=== PATIENT | female | born 1985 | race Caucasian/White ===

== ENCOUNTER 2019-01-20 16:30 | Emergency (ER) | payer MEDICAID ==
[2019-01-20] MEDS ORDERED: Diazepam 5 MG Tab PO ONE (17:40)
--- NOTE | 2019-01-20 17:47 | EDM.PDOC ---
ED HPI GENERAL MEDICAL PROBLEM - General Chief Complaint: Back Pain or Injury Stated Complaint: BACK PAIN Time Seen by Provider: 01/20/19 17:25 Source of Information: Reports: Patient History Limitations: Reports: No Limitations - History of Present Illness INITIAL COMMENTS - FREE TEXT/NARRATIVE: 33-year-old female with long-standing history of chronic back pain. She reports a previous lumbar spine fracture as a teenager (she reports she is unsure how this occurred but was told that she had a fracture in her back during workup for the pain that she is now experiencing). She reports she always has pain in her back. She reports she has been followed by a doctor at [facility] in [place]. She has been given tramadol for her pain as well as Flexeril and she reports that this does not help her pain. She reports the pain does seems to be worse today. She reports the pain as a 10/10 at this point. It is in her lower back and seems to be radiating to her hips which is not unusual. She reports the pain is just worse than it normally is. No new trauma. No abdominal pain. No bowel or bladder control problems. No leg weakness. No abdominal pain. She has been eating and drinking normally. There are R no other associated signs or symptoms. There are no other modifying factors. 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, Other (see below) (Tramadol) back Pain Score (Numeric/FACES): 10 - Related Data Allergies Allergy/AdvReac Type Severity Reaction Status Date / Time amitriptyline Allergy Tachycardia Verified 01/20/19 16:45 Home Meds: Home Meds Cyclobenzaprine HCl 10 mg PO TID 01/20/19 [History] Gabapentin [Neurontin] 300 mg PO DAILY 01/20/19 [History] traMADol [Ultram] 50 mg PO TID PRN 01/20/19 [History] Past Medical History Respiratory History: Reports: Asthma Gastrointestinal History: Reports: Diverticulosis (With diverticulitis status post colon resection) Musculoskeletal History: Reports: Back Pain, Chronic, Other (See Below) ( Reports previous lumbar spine fracture (found on x-ray during workup for her back pain)) - Past Surgical History GI Surgical History: Reports: Cholecystectomy, Colon (: Resection for diverticulitis) Female Surgical History: Reports: Section Social & Family History - Tobacco Use Smoking Status *Q: Never Smoker - Alcohol Use Alcohol Use History: Yes Alcohol Use Frequency: Rarely - Living Situation & Occupation Occupation: Unemployed ED ROS GENERAL - Review of Systems Review Of Systems: See Below Constitutional: Reports: No Symptoms HEENT: Reports: No Symptoms Respiratory: Reports: No Symptoms Cardiovascular: Reports: No Symptoms GI/Abdominal: Reports: No Symptoms : Reports: No Symptoms Musculoskeletal: Reports: Back Pain Skin: Reports: No Symptoms Neurological: Reports: No Symptoms Hematologic/Lymphatic: Reports: No Symptoms Immunologic: Reports: No Symptoms ED EXAM,LOWER BACK PAIN/INJURY - Physical Exam Exam: See Below Exam Limited By: No Limitations General Appearance: Alert, WD/WN, Moderate Distress, Other (It should be noted, however, that she moves quite well going from the chair to the stretcher and seems to be bending and twisting her back without problem.) Eye Exam: Bilateral Eye: EOMI, Normal Inspection, PERRL Ears: Normal External Exam, Hearing Grossly Normal Nose: Normal Inspection, Normal Mucosa Throat/Mouth: Normal Inspection, Normal Oropharynx, Normal Voice, No Airway Compromise Head: Atraumatic, Normocephalic Neck: Normal Inspection, Supple, Non-Tender, Full Range of Motion Respiratory/Chest: No Respiratory Distress, Lungs Clear, Normal Breath Sounds, No Accessory Muscle Use, Chest Non-Tender Cardiovascular: Normal Peripheral Pulses, Regular Rate, Rhythm, No JVD GI/Abdominal: Normal Bowel Sounds, Soft, Non-Tender, Other (Protuberant) Back Exam: Muscle Spasm, Vertebral Tenderness (But no crepitus. No deformity. Redness. No rashes.) Extremities: Normal Inspection, Normal Range of Motion, Non-Tender, No Pedal Edema, Normal Capillary Refill Neurological: Alert, Normal Mood/Affect, Normal Dorsiflexion, CN II-XII Intact, Normal Plantar Flexion, No Motor/Sensory Deficits, Oriented x 3, Other ( Negative straight leg raising bilaterally) Psychiatric: Tearful Skin Exam: Warm, Dry, Intact, Normal Color, No Rash Course - Orders/Labs/Meds Meds: Medications Discontinued Medications Generic Name Dose Route Start Last Admin Trade Name Deanna PRN Reason Stop Dose Admin Diazepam 10 mg 01/20/19 17:40 Valium. PO 01/20/19 17:41 ONETIME ONE - Re-Assessments/Exams Free Text/Narrative Re-Assessment/Exam: 01/20/19 17:45: It was explained to the patient that narcotic or stronger type pain medications are not used for treatment of chronic pain through the emergency department. I have explained to her that she would need to go through her primary doctor for any pain control measures. I offered the patient and injection of Toradol and Valium. She did except the oral Valium dose. Departure - Departure Time of Disposition: 17:53 Disposition: Home, Self-Care 01 Condition: Good Clinical Impression: Chronic back pain greater than 3 months duration - Discharge Information Instructions: Chronic Back Pain, [id number], Chronic Pain, Adult Referrals: PCP,Not In Area [Primary Care Provider] - Additional Instructions: You need to follow-up with your primary doctor for any pain related issues are chronic back pain. Back to the emergency department for bowel or bladder control problems, leg weakness, abdominal pain, fever or any other concerning sign or symptom.
== END 2019-01-20 18:00 | disposition home or self-care (01) ==
LOC: FB.ED 16:30
DX: M62.830 Muscle spasm of back (principal); G89.29 Other chronic pain; Z79.899 Other long term (current) drug therapy; Z88.8 Allergy status to other drugs, medicaments and biological substances
CPT/HCPCS: 99283; A9270

== ENCOUNTER 2019-07-15 21:33 | Emergency (ER) | payer MEDICAID ==
[2019-07-15] MEDS ORDERED: Acetaminophen 500 MG Tab PO ONE (22:03)
[2019-07-15] MEDS ORDERED: Metoclopramide Oral Soln 10 MG/10 ML UD Cup PO ONE (22:03)
[2019-07-15] MEDS ORDERED: diphenhydrAMINE 50 MG Cap PO ONE (22:04)
--- NOTE | 2019-07-15 22:10 | EDM.PDOC ---
ED HPI GENERAL MEDICAL PROBLEM - General Chief Complaint: Neck Problem Stated Complaint: BACK Time Seen by Provider: 07/15/19 22:02 Source of Information: Reports: Patient History Limitations: Reports: No Limitations - History of Present Illness INITIAL COMMENTS - FREE TEXT/NARRATIVE: c/o neck pain x 24h pt without h/o neck pain, has had pain x 24h, no injury, took an oxycodone 5 mg last night which helped a little, on meds today cannot take NSAIDs for another 3w, had a lower back fusion at [facility] with Dr Burton on 04-27-19 for DJD, also "sucked something out" and "put in a replacement" has f/u apt in [place] in 2w with plans for imaging low back then to "see if anything slipped" which "might require more surgery" has imaging in [place] in the last few weeks not allowed to take NSAIDs for 3m post-op only current meds are oxycodone and Flexeril prn had been on citalopram 20 mg/d for anxiety, however it made her sleepy had been on gabapentin but this caused GI upset, 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, lives alone with dog, sees a female [place] physician feels like "something is creaking" in her neck with movement, does move freely, pain more at upper neck neck Pain Score (Numeric/FACES): 8 - Related Data Allergies Allergy/AdvReac Type Severity Reaction Status Date / Time amitriptyline Allergy Tachycardia Verified 07/15/19 21:43 Home Meds: Home Meds Albuterol Sulfate [Albuterol Sulfate Hfa] 1 - 2 puff INH Q4HR PRN 07/15/19 [ History] Past Medical History Respiratory History: Reports: Asthma Gastrointestinal History: Reports: Diverticulosis Musculoskeletal History: Reports: Back Pain, Chronic, Other (See Below) Other Musculoskeletal History: back fusion 04/2019, degenerative disc disease - Past Surgical History GI Surgical History: Reports: Cholecystectomy, Colon Female Surgical History: Reports: Section Social & Family History - Caffeine Use Caffeine Use: Reports: None - Living Situation & Occupation Occupation: Unemployed ED ROS GENERAL - Review of Systems Review Of Systems: See Below Constitutional: Reports: No Symptoms HEENT: Reports: No Symptoms Respiratory: Reports: No Symptoms Cardiovascular: Reports: No Symptoms Endocrine: Reports: No Symptoms GI/Abdominal: Reports: No Symptoms : Reports: No Symptoms Musculoskeletal: Reports: Neck Pain Skin: Reports: No Symptoms Neurological: Reports: No Symptoms Psychiatric: Reports: No Symptoms Hematologic/Lymphatic: Reports: No Symptoms Immunologic: Reports: No Symptoms ED EXAM, GENERAL - Physical Exam Exam: See Below Exam Limited By: No Limitations General Appearance: Alert, WD/WN, No Apparent Distress, Other (short, somewhat stocky built with short neck, slight anterior displacement of head, inc'd central girth) Nose: Normal Inspection Throat/Mouth: Normal Inspection Head: Atraumatic, Normocephalic Neck: Normal Inspection, Supple, Full Range of Motion, Other (no spasm, no definite point tender, good ROM, some discomfort at upper c-spine with ROM, low back with ~15 cm midline scar that is healing well) Respiratory/Chest: Lungs Clear Cardiovascular: Regular Rate, Rhythm Back Exam: Normal Inspection, Full Range of Motion Extremities: Normal Inspection, Normal Range of Motion, Non-Tender, No Pedal Edema Neurological: Alert, Oriented, CN II-XII Intact, Normal Cognition, Normal Gait, No Motor/Sensory Deficits Psychiatric: Normal Affect, Normal Mood Skin Exam: Warm, Dry, Intact, Normal Color, No Rash Lymphatic: No Adenopathy Course - Vital Signs Last Recorded V/S: Last Vital Signs Temp 36.2 C 07/15/19 21:35 Pulse 128 H 07/15/19 21:35 Resp 22 H 07/15/19 21:35 BP 140/97 H 07/15/19 21:35 Pulse Ox 100 07/15/19 21:35 - Orders/Labs/Meds Orders: Active Orders 24 hr Category Date Time Status Cervical Spine Comp w Obliques [CR] Stat Exams 07/15/19 21:57 Ordered Labs: Laboratory Tests 07/15/19 Range/Units 22:01 Urine HCG, Qual Negative (NEGATIVE) Meds: Medications Discontinued Medications Generic Name Dose Route Start Last Admin Trade Name Deanna PRN Reason Stop Dose Admin Acetaminophen 1,000 mg 07/15/19 22:03 07/15/19 22:23 Tylenol Extra Strength PO 07/15/19 22:04 1,000 mg ONETIME ONE Administration Diphenhydramine HCl 50 mg 07/15/19 22:04 07/15/19 22:23 Benadryl PO 07/15/19 22:05 50 mg ONETIME ONE Administration Metoclopramide HCl 10 mg 07/15/19 22:03 07/15/19 22:23 Reglan PO 07/15/19 22:04 10 mg ONETIME ONE Administration - Radiology Interpretation Free Text/Narrative:: c-spine prelim reading: minimal DJD at C6-C7 Departure - Departure Time of Disposition: 22:48 Disposition: Home, Self-Care 01 Condition: Good Clinical Impression: Neck sprain - Discharge Information *PRESCRIPTION DRUG MONITORING PROGRAM REVIEWED*: Yes *COPY OF PRESCRIPTION DRUG MONITORING REPORT IN PATIENT TRICIA: Not Applicable Instructions: Cervical Collar, Cervical Sprain Forms: ED Department Discharge Additional Instructions: For inflammation, take acetaminophen 500 mg 2 tabs 4 times a day for 5 days, longer if needed. At the end of the month, may also take ibuprofen 200 mg 3 tabs 4 times a day. Use heat for 10 minutes every 2 hours as needed. Maintain head in a neutral position, particularly when sleeping. Use a soft cervical collar for 3 days to rest the soft tissues and allow them to heal. Discuss further with your orthopedic surgeon in 2 weeks. - My Orders Last 24 Hours: My Active Orders 07/15/19 21:57 Cervical Spine Comp w Obliques [CR] Stat - Assessment/Plan Last 24 Hours: My Active Orders 07/15/19 21:57 Cervical Spine Comp w Obliques [CR] Stat
[2019-07-16] MEDS ORDERED: Sodium Chloride 0.9% 10 ML Syringe FLUSH PRN (00:20)
[2019-07-16] MEDS ORDERED: Iopamidol 755 Mg/ML 100 ML Bottle IV ONE (00:39)
[2019-07-16 01:00] LABS: HEMOGLOBIN A1C 5.4 % (4.5-6.2)
== END 2019-07-16 02:55 ==
LOC: FB.ED 21:33
DX: S13.9XXA Sprain of joints and ligaments of unspecified parts of neck, initial encounter (principal); G89.18 Other acute postprocedural pain; M54.5 Low back pain; R00.0 Tachycardia, unspecified; I10 Essential (primary) hypertension; D72.829 Elevated white blood cell count, unspecified; R79.82 Elevated C-reactive protein (CRP); R74.8 Abnormal levels of other serum enzymes; R73.9 Hyperglycemia, unspecified; J45.909 Unspecified asthma, uncomplicated; Z88.8 Allergy status to other drugs, medicaments and biological substances; X58.XXXA Exposure to other specified factors, initial encounter
CPT/HCPCS: 36415; 71046; 72050; 72131; 80053; 81001; 81025; 83036; 83605; 84443; 85025; 86140; 87040; 87077; 87186; 99285; A9270; Q9967

== ENCOUNTER 2019-08-22 22:49 | Emergency (ER) | payer MEDICAID ==
--- NOTE | 2019-08-22 23:43 | EDM.PDOC ---
ED HPI GENERAL MEDICAL PROBLEM - General Chief Complaint: Genitourinary Problem Stated Complaint: VAGINAL PAIN Time Seen by Provider: 08/22/19 23:05 Source of Information: Reports: Patient History Limitations: Reports: No Limitations - History of Present Illness INITIAL COMMENTS - FREE TEXT/NARRATIVE: Patient presented to the ED because of vaginal pain especially during intercourse. Denies having any fever or chills. 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 Vagina & lower back Pain Score (Numeric/FACES): 10 - Related Data Allergies Allergy/AdvReac Type Severity Reaction Status Date / Time amitriptyline Allergy Tachycardia Verified 08/22/19 22:56 Home Meds: Home Meds Albuterol Sulfate [Albuterol Sulfate Hfa] 1 - 2 puff INH Q4HR PRN 07/15/19 [ History] Escitalopram [Lexapro] 10 mg PO BEDTIME 08/22/19 [History] Pregabalin [Lyrica] 75 mg BID 08/22/19 [History] Acetaminophen/oxyCODONE [Percocet 325-5 MG] 1 - 2 each PO Q6HR PRN #15 tab 08/23 [Rx] Sulfamethoxazole/Trimethoprim [Bactrim Ds Tablet] 1 each PO BID #6 tablet [Rx] Tamsulosin HCl [Flomax] 0.4 mg PO DAILY #10 cap.er.24h 08/23/19 [Rx] Past Medical History Cardiovascular History: Reports: Hypertension Respiratory History: Reports: Asthma Gastrointestinal History: Reports: Diverticulosis Genitourinary History: Reports: Renal Calculus, Renal Disease CARPET JACK History: Reports: Other CARPET JACK History: Musculoskeletal History: Reports: Back Pain, Chronic, Other (See Below) Other Musculoskeletal History: back fusion 04/2019, degenerative disc disease Psychiatric History: Reports: Anxiety, Depression, Suicide Attempt Endocrine/Metabolic History: Reports: Obesity/BMI 30+ Hematologic History: Reports: Anemia - Infectious Disease History Infectious Disease History: Reports: Chicken Pox - Past Surgical History GI Surgical History: Reports: Cholecystectomy, Colon, Colonoscopy, EGD Female Surgical History: Reports: Section, Lithotripsy/ESWL, Ureteral Stent Other Female Surgeries/Procedures: CS x 1 Neurological Surgical History: Reports: Spinal Fusion Musculoskeletal Surgical History: Reports: Arthroscopic Knee Other Musculoskeletal Surgeries/Procedures:: L knee scope Social & Family History - Family History Family Medical History: Noncontributory - Tobacco Use Smoking Status *Q: Current Some Day Smoker Years of Tobacco use: 1 Packs/Tins Daily: 0.1 - Caffeine Use Caffeine Use: Reports: Coffee, Energy Drinks, Soda, Tea - Recreational Drug Use Recreational Drug Use: No - Living Situation & Occupation Occupation: Unemployed ED ROS GENERAL - Review of Systems Review Of Systems: See Below Constitutional: Reports: No Symptoms HEENT: Reports: No Symptoms Respiratory: Reports: No Symptoms Cardiovascular: Reports: No Symptoms Endocrine: Reports: No Symptoms GI/Abdominal: Reports: Abdominal Pain, Nausea. Denies: Vomiting : Reports: Dysuria, Flank Pain Musculoskeletal: Reports: No Symptoms Skin: Reports: No Symptoms Neurological: Reports: No Symptoms ED EXAM, RENAL/ - Physical Exam Exam: See Below Exam Limited By: No Limitations General Appearance: Alert, WD/WN, No Apparent Distress Ears: Normal External Exam, Normal Canal, Hearing Grossly Normal Nose: Normal Inspection, Normal Mucosa, No Blood Throat/Mouth: Normal Inspection, Normal Lips, Normal Teeth, Normal Gums, Normal Oropharynx, Normal Voice, No Airway Compromise Head: Atraumatic, Normocephalic Neck: Normal Inspection, Supple, Non-Tender, Full Range of Motion Respiratory/Chest: No Respiratory Distress, Lungs Clear, Normal Breath Sounds, No Accessory Muscle Use, Chest Non-Tender Cardiovascular: Normal Peripheral Pulses, Regular Rate, Rhythm, No Edema, No Gallop, No JVD, No Murmur, No Rub GI/Abdominal: Normal Bowel Sounds, Soft, Non-Tender, No Organomegaly, No Distention, No Abnormal Bruit, No Mass, Pelvis Stable, Other (RCVAT) Course - Vital Signs Text/Narrative:: labs and Ct result were discussed with patient and verbalized understanding toradol 60 mg IM x1 [place] 5/325 mg,[address] abd/pelvis-see result Last Recorded V/S: Last Vital Signs Temp 36.5 C 08/22/19 22:50 Pulse 82 08/23/19 00:42 Resp 18 08/23/19 00:42 BP 151/93 H 08/23/19 00:42 Pulse Ox 99 08/23/19 00:42 - Orders/Labs/Meds Orders: Active Orders 24 hr Category Date Time Status Abdomen Pelvis wo Cont [CT] Stat Exams 12/22/19 23:50 Ordered CULTURE URINE [RM] Stat Lab 08/22/19 23:10 Received Labs: Laboratory Tests 08/22/19 Range/Units 23:10 Urine Color [place] (YELLOW) Urine Appearance Slightly cloudy (CLEAR) Urine pH 6.0 (5.0-6.5) Ur Specific [place] 1.020 (1.010-1.025) Urine Protein 500 H (NEGATIVE) mg/dL Urine Glucose (UA) 100 H (NORMAL) mg/dL Urine Ketones Negative (NEGATIVE) mg/dL Urine Occult Blood Large H (NEGATIVE) Urine Nitrite Negative (NEGATIVE) Urine Bilirubin Negative (NEGATIVE) Urine Urobilinogen Normal (NEGATIVE) mg/dL Ur Leukocyte Esterase Small H (NEGATIVE) Urine RBC Packed H (0-5) Urine WBC 0-5 (0-5) Ur Squamous Epith Cells Few H (NS,R,O) Urine Bacteria Few H (NS) Meds: Medications Discontinued Medications Generic Name Dose Route Start Last Admin Trade Name Freq PRN Reason Stop Dose Admin Hydrocodone Bitart/Acetaminophen 2 tab 08/22/19 23:56 08/23/19 00:01 [place] 325-5 Mg PO 08/22/19 23:57 2 tab ONETIME ONE Administration Ketorolac Tromethamine 60 mg 08/23/19 00:50 08/23/19 00:59 Toradol IM 08/23/19 00:51 60 mg ONETIME ONE Administration Departure - Departure Time of Disposition: 01:20 Disposition: Home, Self-Care 01 Condition: Good Clinical Impression: Nephrolithiasis, UTI, Urinary tract infectious disease, Kidney stone - Discharge Information Prescriptions: Acetaminophen/oxyCODONE [Percocet 325-5 MG] 1 - 2 each PO Q6HR PRN #15 tab PRN Reason: Pain Sulfamethoxazole/Trimethoprim [Bactrim Ds Tablet] 1 each PO BID #6 tablet Tamsulosin HCl [Flomax] 0.4 mg PO DAILY #10 cap.er.24h Instructions: Acetaminophen; Hydrocodone tablets or capsules, Ketorolac injection, Kidney Stones, [id number], Urinary Tract Infection, Adult, Easy-to- Read Referrals: Addis Roblero, DA[employer] EQUIPMENT INSTALLER [Primary Care Provider] - Forms: ED Department Discharge Additional Instructions: please read discharge instructions on UTI and kidney stones increase oral fluids,drink at least 2 liters a day bactrim DS twice daily for 3 days flomax once daily until you pain is gone percocet 5/325, 1-2 every 4-6 hours as needed for pain follow up with the urologist who did your stent this week Sepsis Event Note - Evaluation Sepsis Screening Result: No Definite Risk - Focused Exam Vital Signs: Vital Signs Temp Pulse Resp BP Pulse Ox 08/23/19 00:42 82 18 151/93 H 99 08/22/19 22:50 36.5 C 108 H 20 164/94 H 99 Date Exam was Performed: 08/23/19 Time Exam was Performed: 01:38 - My Orders Last 24 Hours: My Active Orders 08/22/19 23:10 CULTURE URINE [RM] Stat 08/22/19 23:50 Abdomen Pelvis wo Cont [CT] Stat - Assessment/Plan Last 24 Hours: My Active Orders 08/22/19 23:10 CULTURE URINE [RM] Stat 08/22/19 23:50 Abdomen Pelvis wo Cont [CT] Stat
[2019-08-22] MEDS ORDERED: Acetaminophen/HYDROcodone 325-5 MG Tab PO ONE (23:56)
[2019-08-23] MEDS ORDERED: Ketorolac 60 MG/2 ML SDV IM ONE (00:50)
== END 2019-08-23 01:54 | disposition home or self-care (01) ==
LOC: FB.ED 22:49
DX: N20.0 Calculus of kidney (principal); N39.0 Urinary tract infection, site not specified; J45.909 Unspecified asthma, uncomplicated; I10 Essential (primary) hypertension; E66.9 Obesity, unspecified; F17.210 Nicotine dependence, cigarettes, uncomplicated; F32.9 Major depressive disorder, single episode, unspecified; Z79.899 Other long term (current) drug therapy; Z88.8 Allergy status to other drugs, medicaments and biological substances; Z68.38 Body mass index [BMI] 38.0-38.9, adult
CPT/HCPCS: 74176; 81001; 87086; 96372; 99284-25; A9270-GY; J1885

== ENCOUNTER 2019-09-28 23:30 | Emergency (ER) | payer MEDICAID ==
[2019-09-29] MEDS ORDERED: Sodium Chloride 0.9% 10 ML Syringe FLUSH PRN (00:35)
[2019-09-29] MEDS ORDERED: Ondansetron 4 MG/2 ML SDV IVPUSH ONE (00:36)
[2019-09-29] MEDS ORDERED: HYDROmorphone 2 MG/ML SDV IVPUSH ONE (00:36)
[2019-09-29] MEDS ORDERED: Sodium Chloride 0.9% 1,000 ML IV SCH (00:45)
--- NOTE | 2019-09-29 01:33 | EDM.PDOC ---
ED HPI GENERAL MEDICAL PROBLEM - General Chief Complaint: Back Pain or Injury Stated Complaint: Upper and lower back pain with tingling in both legs Time Seen by Provider: 09/29/19 00:20 Source of Information: Reports: Patient History Limitations: Reports: No Limitations - History of Present Illness INITIAL COMMENTS - FREE TEXT/NARRATIVE: 33-year-old female who reports ongoing problems with back pain in her lower back since April 2019 Even before this. She had lumbar spinal fusion in April 2019 and she has persisted with pain in her lumbar back. Over the past 2 days she has had worsening of this pain and she also has noticed pain And with some radiation up into her left shoulder. She reports she had never had pain like this before. She also reports some tingling and seems to go down both legs. She has noticed no weakness in her legs. She is rating his pain as an 8-9/10. She has had no fevers or chills. She has had some nausea but no vomiting. The pain in her back is a cramping, sharp and throbbing type pain. She has had no bowel or bladder incontinence problems. She has normal sensation in her perineum. She also has been eating and drinking normally. She has no abdominal pain. No dysuria or hematuria. No history of trauma There are no other associated signs or symptoms. There are no other modifying factors. 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: Reports: Acetaminophen - Related Data Allergies Allergy/AdvReac Type Severity Reaction Status Date / Time amitriptyline Allergy Tachycardia Verified 08/22/19 22:56 Home Meds: Home Meds Albuterol Sulfate [Albuterol Sulfate Hfa] 1 - 2 puff INH Q4HR PRN 07/15/19 [ History] Escitalopram [Lexapro] 10 mg PO BEDTIME 08/22/19 [History] Pregabalin [Lyrica] 75 mg BID 08/22/19 [History] Acetaminophen/oxyCODONE [Percocet 325-5 MG] 1 - 2 each PO Q6HR PRN #15 tab 08/23 [Rx] Sulfamethoxazole/Trimethoprim [Bactrim Ds Tablet] 1 each PO BID #6 tablet [Rx] Tamsulosin HCl [Flomax] 0.4 mg PO DAILY #10 cap.er.24h 08/23/19 [Rx] Orphenadrine [Norflex] 100 mg PO BID PRN #12 tab 09/29/19 [Rx] Past Medical History Cardiovascular History: Reports: Hypertension Respiratory History: Reports: Asthma Gastrointestinal History: Reports: Diverticulosis Genitourinary History: Reports: Renal Calculus, Renal Disease 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: Musculoskeletal History: Reports: Back Pain, Chronic, Other (See Below) Other Musculoskeletal History: back fusion 04/2019, degenerative disc disease Psychiatric History: Reports: Anxiety, Depression, Suicide Attempt Endocrine/Metabolic History: Reports: Obesity/BMI 30+ Hematologic History: Reports: Anemia - Infectious Disease History Infectious Disease History: Reports: Chicken Pox - Past Surgical History GI Surgical History: Reports: Cholecystectomy, Colon, Colonoscopy, EGD Female Surgical History: Reports: Section, Lithotripsy/ESWL, Ureteral Stent Other Female Surgeries/Procedures: CS x 1 Neurological Surgical History: Reports: Spinal Fusion Musculoskeletal Surgical History: Reports: Arthroscopic Knee Other Musculoskeletal Surgeries/Procedures:: L knee scope Social & Family History - Tobacco Use Smoking Status *Q: Never Smoker - Caffeine Use Caffeine Use: Reports: Coffee, Energy Drinks, Soda, Tea - Alcohol Use Alcohol Use History: No - Living Situation & Occupation Occupation: Unemployed ED ROS GENERAL - Review of Systems Review Of Systems: See Below Constitutional: Reports: No Symptoms HEENT: Reports: No Symptoms Respiratory: Reports: No Symptoms Cardiovascular: Reports: No Symptoms GI/Abdominal: Reports: Nausea. Denies: Diarrhea, Vomiting : Reports: No Symptoms Musculoskeletal: Reports: Back Pain Skin: Reports: No Symptoms Neurological: Reports: No Symptoms Hematologic/Lymphatic: Reports: No Symptoms Immunologic: Reports: No Symptoms ED EXAM, GENERAL - Physical Exam Exam: See Below Exam Limited By: No Limitations General Appearance: Alert, WD/WN, Moderate Distress (Due to pain. He does not appear toxic.) Eye Exam: Bilateral Eye: EOMI, Normal Inspection, PERRL Ears: Normal External Exam, Hearing Grossly Normal Ear Exam: Bilateral Ear: Auricle Normal Nose: Normal Inspection, Normal Mucosa, No Blood Throat/Mouth: Normal Inspection, Normal Lips, Normal Oropharynx, Normal Voice, No Airway Compromise Head: Atraumatic, Normocephalic Neck: Normal Inspection, Supple, Non-Tender, Full Range of Motion Respiratory/Chest: No Respiratory Distress, Lungs Clear, Normal Breath Sounds, No Accessory Muscle Use, Chest Non-Tender Cardiovascular: Normal Peripheral Pulses, Regular Rate, Rhythm, No Murmur Peripheral Pulses: 2+: Brachial (L), Brachial (R), Dorsalis Pedis (L), Dorsalis Pedis (R) GI/Abdominal: Normal Bowel Sounds, Soft, Non-Tender, No Mass Back Exam: Muscle Spasm, Paraspinal Tenderness, Vertebral Tenderness Extremities: Normal Inspection, Normal Range of Motion, Non-Tender, No Pedal Edema, Normal Capillary Refill Neurological: Alert, Oriented, CN II-XII Intact, Normal Cognition, No Motor/ Sensory Deficits Skin Exam: Warm, Dry, Intact, Normal Color, No Rash EKG INTERPRETATION EKG Date: 09/29/19 Time: 01:28 Rhythm: NSR Rate (Beats/Min): 86 Jewell: Normal P-Wave: Present QRS: Normal ST-T: Other (Nonspecific ST-T changes) QT: Normal Comparison: NA - No Prior EKG Course - Vital Signs Last Recorded V/S: Last Vital Signs Temp 36.9 C 09/29/19 03:48 Pulse 82 09/29/19 03:48 Resp 14 09/29/19 03:48 BP 121/67 09/29/19 03:48 Pulse Ox 97 09/29/19 03:48 - Orders/Labs/Meds Orders: Active Orders 24 hr Category Date Time Status EKG Documentation Completion [RC] ASDIRECTED Care 09/29/19 00:36 Active CULTURE URINE [RM] Stat Lab 09/29/19 01:31 Received Sodium Chloride 0.9% [Normal Saline] 1,000 ml Med 09/29/19 00:45 Active IV ASDIRECTED Sodium Chloride 0.9% [Saline Flush] Med 09/29/19 00:35 Active 10 ml FLUSH ASDIRECTED PRN Peripheral IV Insertion Adult [OM.PC] Routine Oth 09/29/19 00:35 Ordered EKG 12 Lead [EK] Routine Ther 09/29/19 00:35 Ordered Medication Orders Sodium Chloride (Normal Saline) 1,000 mls @ 100 mls/hr IV ASDIRECTED GAVIN Last Admin: 09/29/19 01:18 Dose: 100 mls/hr Sodium Chloride (Saline Flush) 10 ml FLUSH ASDIRECTED PRN PRN Reason: Keep Vein Open Labs: Laboratory Tests 09/29/19 09/29/19 09/29/19 Range/Units 00:55 00:55 00:55 WBC 11.5 (4.5-12.0) X10-3/uL RBC 5.14 (3.23-5.20) x10(6)uL Hgb 13.3 (11.5-15.5) g/dL Hct 39.4 (30.0-51.3) % MCV 76.6 L (80-96) fL MCH 25.9 L (27.7-33.6) pg MCHC 33.8 (32.2-35.4) g/dL RDW 14.4 (11.5-15.5) % Plt Count 302 (125-369) X10(3)uL MPV 7.7 (7.4-10.4) fL Neut % (Auto) 78.9 (46-82) % Lymph % (Auto) 14.8 (13-37) % [place] % (Auto) 5.2 (4-12) % Eos % (Auto) 1 (1.0-5.0) % Baso % (Auto) 0 (0-2) % Neut # (Auto) 9.1 H (1.6-8.3) # Lymph # (Auto) 1.7 (0.6-5.0) # [place] # (Auto) 0.6 (0.0-1.3) # Eos # (Auto) 0.1 (0.0-0.8) # Baso # (Auto) 0.0 (0.0-0.2) # D-Dimer, Quantitative 0.59 (0.0-0.59) mg/LFEU Sodium 143 (135-145) mmol/L Potassium 3.5 (3.5-5.3) mmol/L Chloride 104 (100-110) mmol/L Carbon Dioxide 27 (21-32) mmol/L BUN 8 (7-18) mg/dL Creatinine 0.8 (0.55-1.02) mg/dL Est Cr Clr Drug Dosing TNP Estimated GFR (MDRD) > 60 (>60) BUN/Creatinine Ratio 10.0 (9-20) Glucose 108 (80-116) mg/dL Calcium 9.0 (8.6-10.2) mg/dL Total Bilirubin 0.4 (0.1-1.3) mg/dL AST 18 (5-25) IU/L ALT 28 (12-36) U/L Alkaline Phosphatase 162 H (56-112) IU/L Troponin I (4.0-60.3) pg/mL C-Reactive Protein (0.5-0.9) mg/dL Total Protein 8.2 H (6.0-8.0) g/dL Albumin 3.9 (3.5-5.2) g/dL Globulin 4.3 g/dL Albumin/Globulin Ratio 0.9 Urine Color (YELLOW) Urine Appearance (CLEAR) Urine pH (5.0-6.5) Ur Specific [place] (1.010-1.025) Urine Protein (NEGATIVE) mg/dL Urine Glucose (UA) (NORMAL) mg/dL Urine Ketones (NEGATIVE) mg/dL Urine Occult Blood (NEGATIVE) Urine Nitrite (NEGATIVE) Urine Bilirubin (NEGATIVE) Urine Urobilinogen (NEGATIVE) mg/dL Ur Leukocyte Esterase (NEGATIVE) Urine RBC (0-5) Urine WBC (0-5) Ur Squamous Epith Cells (NS,R,O) Urine Bacteria (NS) Urine Mucus (NS) Urine HCG, Qual (NEGATIVE) 09/29/19 09/29/19 09/29/19 Range/Units 00:55 00:55 01:21 WBC (4.5-12.0) X10-3/uL RBC (3.23-5.20) x10(6)uL Hgb (11.5-15.5) g/dL Hct (30.0-51.3) % MCV (80-96) fL MCH (27.7-33.6) pg MCHC (32.2-35.4) g/dL RDW (11.5-15.5) % Plt Count (125-369) X10(3)uL MPV (7.4-10.4) fL Neut % (Auto) (46-82) % Lymph % (Auto) (13-37) % [place] % (Auto) (4-12) % Eos % (Auto) (1.0-5.0) % Baso % (Auto) (0-2) % Neut # (Auto) (1.6-8.3) # Lymph # (Auto) (0.6-5.0) # [place] # (Auto) (0.0-1.3) # Eos # (Auto) (0.0-0.8) # Baso # (Auto) (0.0-0.2) # D-Dimer, Quantitative (0.0-0.59) mg/LFEU Sodium (135-145) mmol/L Potassium (3.5-5.3) mmol/L Chloride (100-110) mmol/L Carbon Dioxide (21-32) mmol/L BUN (7-18) mg/dL Creatinine (0.55-1.02) mg/dL Est Cr Clr Drug Dosing Estimated GFR (MDRD) (>60) BUN/Creatinine Ratio (9-20) Glucose (80-116) mg/dL Calcium (8.6-10.2) mg/dL Total Bilirubin (0.1-1.3) mg/dL AST (5-25) IU/L ALT (12-36) U/L Alkaline Phosphatase (56-112) IU/L Troponin I 5.8 (4.0-60.3) pg/mL C-Reactive Protein 1.5 H (0.5-0.9) mg/dL Total Protein (6.0-8.0) g/dL Albumin (3.5-5.2) g/dL Globulin g/dL Albumin/Globulin Ratio Urine Color Yellow (YELLOW) Urine Appearance Slightly cloudy (CLEAR) Urine pH 6.0 (5.0-6.5) Ur Specific [place] 1.020 (1.010-1.025) Urine Protein Negative (NEGATIVE) mg/dL Urine Glucose (UA) Normal (NORMAL) mg/dL Urine Ketones Negative (NEGATIVE) mg/dL Urine Occult Blood Negative (NEGATIVE) Urine Nitrite Negative (NEGATIVE) Urine Bilirubin Negative (NEGATIVE) Urine Urobilinogen Normal (NEGATIVE) mg/dL Ur Leukocyte Esterase Negative (NEGATIVE) Urine RBC 0-5 (0-5) Urine WBC 0-5 (0-5) Ur Squamous Epith Cells Few H (NS,R,O) Urine Bacteria Few H (NS) Urine Mucus Few H (NS) Urine HCG, Qual (NEGATIVE) 09/29/19 Range/Units 01:21 WBC (4.5-12.0) X10-3/uL RBC (3.23-5.20) x10(6)uL Hgb (11.5-15.5) g/dL Hct (30.0-51.3) % MCV (80-96) fL MCH (27.7-33.6) pg MCHC (32.2-35.4) g/dL RDW (11.5-15.5) % Plt Count (125-369) X10(3)uL MPV (7.4-10.4) fL Neut % (Auto) (46-82) % Lymph % (Auto) (13-37) % [place] % (Auto) (4-12) % Eos % (Auto) (1.0-5.0) % Baso % (Auto) (0-2) % Neut # (Auto) (1.6-8.3) # Lymph # (Auto) (0.6-5.0) # [place] # (Auto) (0.0-1.3) # Eos # (Auto) (0.0-0.8) # Baso # (Auto) (0.0-0.2) # D-Dimer, Quantitative (0.0-0.59) mg/LFEU Sodium (135-145) mmol/L Potassium (3.5-5.3) mmol/L Chloride (100-110) mmol/L Carbon Dioxide (21-32) mmol/L BUN (7-18) mg/dL Creatinine (0.55-1.02) mg/dL Est Cr Clr Drug Dosing Estimated GFR (MDRD) (>60) BUN/Creatinine Ratio (9-20) Glucose (80-116) mg/dL Calcium (8.6-10.2) mg/dL Total Bilirubin (0.1-1.3) mg/dL AST (5-25) IU/L ALT (12-36) U/L Alkaline Phosphatase (56-112) IU/L Troponin I (4.0-60.3) pg/mL C-Reactive Protein (0.5-0.9) mg/dL Total Protein (6.0-8.0) g/dL Albumin (3.5-5.2) g/dL Globulin g/dL Albumin/Globulin Ratio Urine Color (YELLOW) Urine Appearance (CLEAR) Urine pH (5.0-6.5) Ur Specific [place] (1.010-1.025) Urine Protein (NEGATIVE) mg/dL Urine Glucose (UA) (NORMAL) mg/dL Urine Ketones (NEGATIVE) mg/dL Urine Occult Blood (NEGATIVE) Urine Nitrite (NEGATIVE) Urine Bilirubin (NEGATIVE) Urine Urobilinogen (NEGATIVE) mg/dL Ur Leukocyte Esterase (NEGATIVE) Urine RBC (0-5) Urine WBC (0-5) Ur Squamous Epith Cells (NS,R,O) Urine Bacteria (NS) Urine Mucus (NS) Urine HCG, Qual Negative (NEGATIVE) Meds: Medications Generic Name Dose Route Start Last Admin Trade Name Freq PRN Reason Stop Dose Admin Sodium Chloride 1,000 mls @ 100 mls/hr 09/29/19 00:45 09/29/19 01:18 Normal Saline IV 100 mls/hr ASDIRECTED GAVIN Administration Sodium Chloride 10 ml 09/29/19 00:35 Saline Flush FLUSH ASDIRECTED PRN Keep Vein Open Discontinued Medications Generic Name Dose Route Start Last Admin Trade Name Freq PRN Reason Stop Dose Admin Diazepam 5 mg 09/29/19 03:44 09/29/19 03:53 Valium IVPUSH 09/29/19 03:45 5 mg ONETIME ONE Administration Hydromorphone HCl 1 mg 09/29/19 00:36 09/29/19 01:14 Dilaudid IVPUSH 09/29/19 00:37 1 mg ONETIME ONE Administration Ondansetron HCl 4 mg 09/29/19 00:36 09/29/19 01:14 Zofran IVPUSH 09/29/19 00:37 4 mg ONETIME ONE Administration - Re-Assessments/Exams Free Text/Narrative Re-Assessment/Exam: 09/29/19 04:10: The patient's blood tests were reassuringly normal except for a minimally elevated CRP of unclear significance. Her white blood cell count was normal. Urinalysis has 0-5 white cells and 0-5 red cells with bacteria present. I did in the urine for culture. He was having no urinary symptoms at this time. I reviewed the results of an MRI performed on the patient in July 2019. I refer the reader to Dr. Shane's note of that emergency department visit. The patient was sent to [facility] in [place] for some concern of epidural abscess and the MRI from that time was essentially normal with the confusion appeared to be intact and no evidence of infection or inflammation at the level of the spine. The patient's pain in her lumbar back appears to be a chronic pain that she has been having in her lumbar back since before and after her surgery for fusion which was done in April 2019. I am unsure why the patient is having the mid back pain. There is no evidence of a serious or significant infection causing these problems. She is followed by a back specialist in [place]. She was given Dilaudid 1 mg, Zofran 4 mg IV and also 5 mg IV for her pain and muscle spasm. She reports that this did help somewhat with her pain but she is still having the pain in both areas of her back and also the mild tingling in scattered areas over both of her legs. That she reports has just been present over the past 2-3 days. There is no evidence of a serious problem causing these symptoms. I have stressed to the patient that she should follow-up with her back specialist. She is stable for discharge at this point. I have given her a prescription for Norflex. Departure - Departure Time of Disposition: 04:30 Disposition: Home, Self-Care 01 Condition: Good Clinical Impression: Acute exacerbation of chronic low back pain, Failed back syndrome of lumbar spine - Discharge Information Prescriptions: Orphenadrine [Norflex] 100 mg PO BID PRN #12 tab PRN Reason: Muscle spasm or muscle pain Instructions: What You Need to Know About Chronic Back Pain, Back Exercises, [id number], Chronic Back Pain, [id number] Referrals: PCP,None [Primary Care Provider] - Forms: ED Department Discharge Additional Instructions: Your blood tests were reassuringly normal. Your urine test did show slight evidence for infection and I sent that for culture. You are not having any symptoms, we will wait for the culture to come back if it is positive you will need to be treated for an infection. You do not appear to have any serious or significant infection or problem with your back. You should follow-up with your back specialist in [place] by next week. I have given you a prescription of Norflex that you may use for muscle spasm. Ambulate as tolerated. Do the back stretching exercises as you have been told in the past. Back to the emergency department for fever, pain, chest pain, leg weakness or any other concerning sign or symptom. Sepsis Event Note - Evaluation Sepsis Screening Result: No Definite Risk - Focused Exam Vital Signs: Vital Signs Temp Pulse Resp BP Pulse Ox 09/29/19 03:48 36.9 C 82 14 121/67 97 09/28/19 23:37 36.9 C 90 14 157/76 H 99 Date Exam was Performed: 09/29/19 Time Exam was Performed: 05:38 - My Orders Last 24 Hours: My Active Orders 09/29/19 00:35 Sodium Chloride 0.9% [Saline Flush] 10 ml FLUSH ASDIRECTED PRN Peripheral IV Insertion Adult [OM.PC] Routine EKG 12 Lead [EK] Routine 09/29/19 00:36 EKG Documentation Completion [RC] ASDIRECTED 09/29/19 00:45 Sodium Chloride 0.9% [Normal Saline] 1,000 ml IV ASDIRECTED 09/29/19 01:31 CULTURE URINE [RM] Stat - Assessment/Plan Last 24 Hours: My Active Orders 09/29/19 00:35 Sodium Chloride 0.9% [Saline Flush] 10 ml FLUSH ASDIRECTED PRN Peripheral IV Insertion Adult [OM.PC] Routine EKG 12 Lead [EK] Routine 09/29/19 00:36 EKG Documentation Completion [RC] ASDIRECTED 09/29/19 00:45 Sodium Chloride 0.9% [Normal Saline] 1,000 ml IV ASDIRECTED 09/29/19 01:31 CULTURE URINE [RM] Stat
== END 2019-09-29 05:33 | disposition home or self-care (01) ==
LOC: FB.ED 23:30
DX: M54.5 Low back pain (principal); G89.29 Other chronic pain; M96.1 Postlaminectomy syndrome, not elsewhere classified; F32.9 Major depressive disorder, single episode, unspecified; F41.9 Anxiety disorder, unspecified; J45.909 Unspecified asthma, uncomplicated; E66.9 Obesity, unspecified; Z88.8 Allergy status to other drugs, medicaments and biological substances; Z79.899 Other long term (current) drug therapy; Z68.38 Body mass index [BMI] 38.0-38.9, adult
CPT/HCPCS: 36415; 80053; 81001; 81025; 84484; 85025; 85379; 86140; 87086; 93005; 96361; 96374; 96375; 99284-25; J1170; J2405; J3360; J7030

== ENCOUNTER 2019-12-12 15:22 | Emergency (ER) | payer MEDICAID ==
[2019-12-12] MEDS ORDERED: Baclofen 10 MG Tab PO ONE (15:56)
[2019-12-12] MEDS ORDERED: Morphine 2 MG/ML SYRINGE IM ONE (15:56)
[2019-12-12] MEDS ORDERED: Ketorolac 60 MG/2 ML SDV IM ONE (15:56)
--- NOTE | 2019-12-12 16:47 | EDM.PDOC ---
ED HPI GENERAL MEDICAL PROBLEM - General Chief Complaint: Back Pain or Injury Stated Complaint: BACK PAIN Time Seen by Provider: 12/12/19 15:25 Source of Information: Reports: Patient History Limitations: Reports: No Limitations - History of Present Illness INITIAL COMMENTS - FREE TEXT/NARRATIVE: Patient presented to the ED because of a worsening low back pain. She has a h/o back pain an she took ibuprofen 400 mg and flexeril which didn't help. The pain is 10/10 and is worse with movements. There is no recent trauma or injury. She has a upcoming appointment to be sen by the pain specialist this coming . Lower back & L hip Pain Score (Numeric/FACES): 10 - Related Data Allergies Allergy/AdvReac Type Severity Reaction Status Date / Time amitriptyline Allergy Tachycardia Verified 12/12/19 15:25 Home Meds: Home Meds Albuterol Sulfate [Albuterol Sulfate Hfa] 1 - 2 puff INH Q4HR PRN 07/15/19 [ History] Escitalopram [Lexapro] 20 mg PO BEDTIME 08/22/19 [History] Baclofen 10 mg PO Q8H PRN #30 tablet 12/12/19 [Rx] Fluticasone Propionate [Flonase] 2 spray NASBOTH DAILY 12/12/19 [History] Ibuprofen 800 mg PO Q8H PRN #60 tablet 12/12/19 [Rx] amLODIPine [Norvasc] 10 mg PO DAILY 12/12/19 [History] traZODone 100 mg PO BEDTIME 12/12/19 [History] Past Medical History Cardiovascular History: Reports: Hypertension Respiratory History: Reports: Asthma Gastrointestinal History: Reports: Diverticulosis Genitourinary History: Reports: Renal Calculus, Renal Disease 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: Musculoskeletal History: Reports: Back Pain, Chronic, Other (See Below) Other Musculoskeletal History: back fusion Apr 2019, degenerative disc disease Psychiatric History: Reports: Anxiety, Depression, Panic Attack, Psych Hospitalization(s), Suicide Attempt Endocrine/Metabolic History: Reports: Obesity/BMI 30+ Hematologic History: Reports: Anemia Dermatologic History: Reports: Eczema - Infectious Disease History Infectious Disease History: Reports: Chicken Pox - Past Surgical History HEENT Surgical History: Reports: Oral Surgery GI Surgical History: Reports: Cholecystectomy, Colon, Colonoscopy, EGD Female Surgical History: Reports: Section, Lithotripsy/ESWL, Ureteral Stent Other Female Surgeries/Procedures: CS x 1 Neurological Surgical History: Reports: Spinal Fusion Musculoskeletal Surgical History: Reports: Arthroscopic Knee Other Musculoskeletal Surgeries/Procedures:: L knee scope Social & Family History - Family History Family Medical History: Noncontributory - Tobacco Use Smoking Status *Q: Never Smoker - Caffeine Use Caffeine Use: Reports: Coffee, Soda - Recreational Drug Use Recreational Drug Use: Yes Recreational Drug Type: Reports: Marijuana/Hashish Recreational Drug Use Frequency: Socially - Living Situation & Occupation Occupation: Unemployed ED ROS GENERAL - Review of Systems Review Of Systems: See Below Constitutional: Reports: No Symptoms HEENT: Reports: No Symptoms Respiratory: Reports: No Symptoms Cardiovascular: Reports: No Symptoms Endocrine: Reports: No Symptoms GI/Abdominal: Reports: No Symptoms : Reports: No Symptoms Musculoskeletal: Reports: Neck Pain, Back Pain Skin: Reports: No Symptoms Neurological: Reports: No Symptoms ED EXAM,LOWER BACK PAIN/INJURY - Physical Exam Exam: See Below Exam Limited By: No Limitations General Appearance: Alert, No Apparent Distress Ears: Normal External Exam, Normal Canal Nose: Normal Inspection, Normal Mucosa Throat/Mouth: Normal Inspection, Normal Lips, Normal Teeth Head: Atraumatic, Normocephalic Neck: Normal Inspection, Supple, Non-Tender Respiratory/Chest: No Respiratory Distress, Lungs Clear, Normal Breath Sounds Cardiovascular: Normal Peripheral Pulses, Regular Rate, Rhythm, No Edema GI/Abdominal: Normal Bowel Sounds Back Exam: Muscle Spasm, Vertebral Tenderness Course - Vital Signs Text/Narrative:: toradol 60 mg IM baclofen 10 mg po morphine 4 mg IM lidoderm patch slick of the lumbar spine didn't reveal acute changes Last Recorded V/S: Last Vital Signs Temp 36.9 C 12/12/19 15:22 Pulse 105 H 12/12/19 15:22 Resp 18 12/12/19 15:22 BP 148/81 H 12/12/19 15:22 Pulse Ox 100 12/12/19 15:22 - Orders/Labs/Meds Orders: Active Orders 24 hr Category Date Time Status Lumbar Spine 2 or 3V [CR] Stat Exams 12/12/19 15:57 Taken Meds: Medications Discontinued Medications Generic Name Dose Route Start Last Admin Trade Name Freq PRN Reason Stop Dose Admin Baclofen 10 mg 12/12/19 15:56 12/12/19 16:07 Lioresal PO 12/12/19 15:57 10 mg ONETIME ONE Administration Ketorolac Tromethamine 60 mg 12/12/19 15:56 12/12/19 16:08 Toradol IM 12/12/19 15:57 60 mg ONETIME ONE Administration Lidocaine 700 mg 12/12/19 16:49 12/12/19 17:09 Lidoderm 5% TOP 12/12/19 16:50 700 mg NOW STA Administration Morphine Sulfate 4 mg 12/12/19 15:56 12/12/19 16:10 Morphine IM 12/12/19 15:57 4 mg ONETIME ONE Administration Departure - Departure Time of Disposition: 16:40 Disposition: Home, Self-Care 01 Condition: Good Clinical Impression: Chronic low back pain - Discharge Information Prescriptions: Baclofen 10 mg PO Q8H PRN #30 tablet PRN Reason: Muscle Spasm Ibuprofen 800 mg PO Q8H PRN #60 tablet PRN Reason: Pain Instructions: Ketorolac injection, Baclofen tablets, Chronic Back Pain, Easy-to -Read, Lidocaine dermal patch, Morphine injection solution Referrals: Addis Roblero, SALES AND [employer]ASING AGENT [Primary Care Provider] - Forms: ED Department Discharge Additional Instructions: please read discharge instructions on chronic low back pain remove the lidoderm patch after 24 hours. If it helps with your pain ask a prescription from your doctor take ibuprofen 900 mg with tylenol 1000 mg rvrtu 8 hours as needed for pain baclofen 10 mg every 8 hours as needed for muscle spasm keep you pain specialist appointment on Sepsis Event Note - Evaluation Sepsis Screening Result: No Definite Risk - Focused Exam Vital Signs: Vital Signs Temp Pulse Resp BP Pulse Ox 12/12/19 15:22 36.9 C 105 H 18 148/81 H 100 Date Exam was Performed: 12/12/19 Time Exam was Performed: 17:39 - My Orders Last 24 Hours: My Active Orders 12/12/19 15:57 Lumbar Spine 2 or 3V [CR] Stat - Assessment/Plan Last 24 Hours: My Active Orders 12/12/19 15:57 Lumbar Spine 2 or 3V [CR] Stat
[2019-12-12] MEDS ORDERED: Lidocaine 5% 700 MG Patch TOP STA (16:49)
--- NOTE | 2019-12-13 10:54 | CR ---
INDICATION: Low back pain. LUMBOSACRAL SPINE: Three views of the lumbosacral spine were obtained 12/12/19 and compared with lumbosacral spine CT of 07/16/19. Fusion is noted at L5-S1 and appears to be intact with grade 1 anterolisthesis noted at that level. A disk spacer is noted in place along with rods and pedicle screws which appear intact. 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 There is decreased disk space at L3-4 as previously noted with vertebral body and disk heights otherwise fairly well maintained. IMPRESSION: 1. Stable fusion L5-S1. 2. Degenerative disk disease L3-4 with only minimal hypertrophic change at that level. MTDD
== END 2019-12-12 17:12 | disposition home or self-care (01) ==
LOC: FB.ED 15:22
DX: M54.5 Low back pain (principal); G89.29 Other chronic pain; J45.909 Unspecified asthma, uncomplicated; I10 Essential (primary) hypertension; E66.9 Obesity, unspecified; F41.9 Anxiety disorder, unspecified; F32.9 Major depressive disorder, single episode, unspecified; Z68.38 Body mass index [BMI] 38.0-38.9, adult; Z88.8 Allergy status to other drugs, medicaments and biological substances; Z79.899 Other long term (current) drug therapy
CPT/HCPCS: 72100; 96372; 99284-25; A9270-GY; J1885; J2270

== ENCOUNTER 2020-02-12 17:16 | Emergency (ER) | payer MEDICAID ==
--- NOTE | 2020-02-12 17:23 | EDM.PDOC ---
ED HPI GENERAL MEDICAL PROBLEM - General Stated Complaint: LEFT EYE FEELS LIKE SOMETHING IN IT Time Seen by Provider: 02/12/20 17:23 Source of Information: Reports: Patient History Limitations: Reports: No Limitations - History of Present Illness INITIAL COMMENTS - FREE TEXT/NARRATIVE: 34-year-old female who reports that yesterday at approximately 1 to 2 PM her dog shook and he felt like something was may be dog hair) got into her right eye and since that time she has been having irritation in her right eye. She has been applying artificial tears to the right eye and allergy drops to her right eye and she has used a "Q-tip" to try to brushed something out of her right eye and her symptoms just seem to have worsened rather than improved. She has had no nausea or vomiting. She has had no nasal congestion. She has had no fevers or chills. She's had no difficulty breathing or cough. No sore throat. Her vision is somewhat blurry in the right eye. She reports the pain and irritation is about a 6/10. It is sharp and stinging. There are no other associated signs or symptoms. There are no other modifying factors. Onset: Other (Yesterday approximate 1 to 2 PM.) Duration: Getting Worse Location: Reports: Other (Right eye) Quality: Reports: Sharp (Sharp and stinging) Severity: Moderate Improves with: Reports: Rest Worsens with: Reports: Movement (Any movement of her eye. 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(s) (Eyedrops as mentioned above.) R eye Pain Score (Numeric/FACES): 5 - Related Data Allergies Allergy/AdvReac Type Severity Reaction Status Date / Time amitriptyline Allergy Tachycardia Verified 02/12/20 18:12 Home Meds: Home Meds Albuterol Sulfate [Albuterol Sulfate Hfa] 1 - 2 puff INH Q4HR PRN 07/15/19 [ History] Escitalopram [Lexapro] 20 mg PO BEDTIME 08/22/19 [History] Fluticasone Propionate [Flonase] 2 spray NASBOTH BID 12/12/19 [History] amLODIPine [Norvasc] 10 mg PO DAILY 12/12/19 [History] traZODone 150 mg PO BEDTIME 12/12/19 [History] Meloxicam 7.5 mg BID PRN 02/12/20 [History] Montelukast [Singulair] 10 mg PO BEDTIME 02/12/20 [History] amLODIPine Besylate [Norvasc] 10 mg PO DAILY 02/12/20 [History] buPROPion HCL [Wellbutrin SR] 150 mg PO DAILY 02/12/20 [History] tiZANidine 2 mg PO TID PRN 02/12/20 [History] Past Medical History Cardiovascular History: Reports: Hypertension Respiratory History: Reports: Asthma Gastrointestinal History: Reports: Diverticulosis Genitourinary History: Reports: Renal Calculus, Renal Disease 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: Musculoskeletal History: Reports: Back Pain, Chronic, Other (See Below) Other Musculoskeletal History: back fusion Apr 2019, degenerative disc disease Psychiatric History: Reports: Anxiety, Depression, Panic Attack, Psych Hospitalization(s), Suicide Attempt Endocrine/Metabolic History: Reports: Obesity/BMI 30+ Hematologic History: Reports: Anemia Immunologic History: Reports: Other (See Below) (Allergies) Dermatologic History: Reports: Eczema - Infectious Disease History Infectious Disease History: Reports: Chicken Pox - Past Surgical History HEENT Surgical History: Reports: Oral Surgery GI Surgical History: Reports: Cholecystectomy, Colon, Colonoscopy, EGD Female Surgical History: Reports: Section, Lithotripsy/ESWL, Ureteral Stent Other Female Surgeries/Procedures: CS x 1 Neurological Surgical History: Reports: Lumbar Spine, Spinal Fusion Musculoskeletal Surgical History: Reports: Arthroscopic Knee Other Musculoskeletal Surgeries/Procedures:: L knee scope Social & Family History - Tobacco Use Smoking Status *Q: Unknown Ever Smoked (Nonsmoker) - Caffeine Use Caffeine Use: Reports: Coffee, Soda - Alcohol Use Alcohol Use History: No - Living Situation & Occupation Occupation: Unemployed ED ROS GENERAL - Review of Systems Review Of Systems: See Below Constitutional: Reports: No Symptoms HEENT: Reports: Eye Pain (She did have some matting of her eyelashes this morning and the left eye) Respiratory: Reports: No Symptoms Cardiovascular: Reports: No Symptoms Endocrine: Reports: No Symptoms GI/Abdominal: Reports: No Symptoms : Reports: No Symptoms Musculoskeletal: Reports: No Symptoms Skin: Reports: No Symptoms Neurological: Reports: No Symptoms Psychiatric: Reports: No Symptoms Hematologic/Lymphatic: Reports: No Symptoms Immunologic: Reports: No Symptoms ED EXAM GENERAL W FULL EYE - Physical Exam Exam: See Below Exam Limited By: No Limitations General Appearance: Alert, Moderate Distress, Obese Eye Exam: Right Eye: Conjunctival Injection, Bilateral Eye: PERRL Visual Acuity (R) 20/: 50 Visual Acuity (L) 20/: 30 With Correction: Yes Eyelids: Right: Infraorbital Anesthesia, Lid Everted for Exam, Bilateral: Normal Appearance Conjunctiva & Sclera: Right: Injected, Left: Normal Appearance Cornea Exam: Right: Examined with Flourescein (Nose worsening up-to-date), Bilateral: Normal Appearance Extraocular Movements: Bilateral: Intact Pupils: Normal Accommodation Pupillary Size: Bilateral: 3 mm Pupillary Reaction: Bilateral: Brisk Anterior Chamber: Bilateral: Normal Appearance Ears: Normal External Exam, Hearing Grossly Normal Nose: Normal Inspection, Normal Mucosa, No Blood Throat/Mouth: Normal Inspection, Normal Lips, Normal Oropharynx, Normal Voice, No Airway Compromise Head: Atraumatic, Normocephalic Neck: Normal Inspection, Supple, Non-Tender, Full Range of Motion Respiratory/Chest: No Respiratory Distress, Lungs Clear, Normal Breath Sounds, No Accessory Muscle Use, Chest Non-Tender Cardiovascular: Normal Peripheral Pulses, Regular Rate, Rhythm, No Murmur GI/Abdominal: Normal Bowel Sounds, Soft, Non-Tender Back Exam: Normal Inspection Extremities: Normal Inspection, Normal Range of Motion, Non-Tender, No Pedal Edema, Normal Capillary Refill Neurological: Alert, Oriented, CN II-XII Intact, Normal Cognition, No Motor/ Sensory Deficits Psychiatric: Normal Affect Skin Exam: Warm, Dry, Intact, Normal Color, No Rash ED EYE w/ Add Procedure - Eye Procedure Alcaine Drops Administered: Yes (Tetracaine eyedrops) Eye FB Removal: no Removal w/ Cotton Swab, no Removal w/ Needle, no Other ( Right upper lid everted with no foreign body found) Eye Irrigated w/ Saline (ccs): 120 (right eye irrigated with eye wash solution times one bottle) Antibiotic Oinment/Drps Admin: Right Eye Progress: The right eye was initially evaluated using the tetracaine eyedrops and then after a negative exam for foreign body, a fluorescein stain was applied to the right eye and there was no evidence of fluorescein uptake. This procedure well and there were no apparent complications. Course - Vital Signs Last Recorded V/S: Last Vital Signs Temp 36.8 C 02/12/20 17:50 Pulse 94 06/13/20 18:40 Resp 18 02/12/20 18:40 BP 131/74 02/12/20 18:40 Pulse Ox 100 02/12/20 18:40 - Orders/Labs/Meds Meds: Medications Discontinued Medications Generic Name Dose Route Start Last Admin Trade Name Deanna PRN Reason Stop Dose Admin Erythromycin 1 gm 02/12/20 17:53 02/12/20 18:11 Erythromycin 0.5% Ophth Oint EYERT 02/12/20 17:54 1 applic ONETIME ONE Administration - Re-Assessments/Exams Free Text/Narrative Re-Assessment/Exam: 02/12/20 17:55: There was no evidence of retained foreign body in the right eye. There was also no evidence of any significant corneal abrasion. It either represent a conjunctivitis either allergic or viral or bacterial it could represent a minor corneal abrasion. I will have the patient apply erythromycin eye ointment to the right eye 4 times a day for the next 5 days. I will also have the patient apply artificial tears to the right eye as needed. I have told her to stop using the allergy type eyedrops. Departure - Departure Time of Disposition: 18:10 Disposition: Home, Self-Care 01 Condition: Good Clinical Impression: Irritation of right eye Conjunctivitis Qualifiers: Conjunctivitis type: acute Acute conjunctivitis type: unspecified Laterality: right Qualified Code(s): H10.31 - Unspecified acute conjunctivitis, right eye - Discharge Information Instructions: Erythromycin eye ointment, How to Use Eye Drops and Eye Ointments Referrals: Addis Roblero TRAIN CONTROLLER [Primary Care Provider] - Forms: ED Department Discharge Additional Instructions: There was no evidence of a foreign body in your right eye. There was also no evidence of any major abrasion or scratch to the right eye. This could be an allergic or infectious conjunctivitis. It could also be eye irritation from a foreign body that was present but now is gone. Apply the erythromycin eye ointment to the right eye 4 times a day for the next 5 days. You should also use artificial tears to the right eye as needed. Do not use the allergy eyedrops anymore. Follow-up with an eye doctor this next week if you have persisting irritation in the right eye. Back to the emergency department for vomiting, abrupt change in vision or any other concerning sign or symptom. Sepsis Event Note (ED) - Focused Exam Vital Signs: Vital Signs Temp Pulse Resp BP Pulse Ox 02/12/20 18:40 94 18 131/74 100 02/12/20 17:50 36.8 C 93 20 158/76 H 100
[2020-02-12] MEDS: Erythromycin Base 0.5% Ophth Oint 1 GM Tube EYERT ONE (18:11)
== END 2020-02-12 18:50 | disposition home or self-care (01) ==
LOC: FB.ED 17:16
DX: H10.31 Unspecified acute conjunctivitis, right eye (principal); I10 Essential (primary) hypertension; J45.909 Unspecified asthma, uncomplicated; F41.9 Anxiety disorder, unspecified; F32.9 Major depressive disorder, single episode, unspecified; E66.9 Obesity, unspecified; Z68.38 Body mass index [BMI] 38.0-38.9, adult; Z88.8 Allergy status to other drugs, medicaments and biological substances; Z79.899 Other long term (current) drug therapy
CPT/HCPCS: 99283; A9270-GY

== ENCOUNTER 2020-03-06 16:47 | Emergency (ER) | payer MEDICAID ==
--- NOTE | 2020-03-06 17:06 | EDM.PDOC ---
ED HPI GENERAL MEDICAL PROBLEM - General Stated Complaint: OVERDOSE Time Seen by Provider: 03/06/20 17:00 Source of Information: Reports: Patient, EMS History Limitations: Reports: No Limitations - History of Present Illness INITIAL COMMENTS - FREE TEXT/NARRATIVE: pt comes from home by EMS after a welfare check by her fiance and finding out that she has taken multiple difrent medications in a suicidal gesture after an argument. pt here appear sleepy, states she is fed up with her chronic depression and chronic pain as well problems with her fiance and wants a way out of all of this and thats why she took all those medications , pt denies any hallucinations, any alcohol use, any homicidal ideations , report feeling sleepy and tiered , denies any other neuro or resp or Cv sx or any other concerns. pt report Hx of smoking as well marijuana use denies any other illicit drug use. pt report Hx of attempted suicide few years ago by overdosing on medications. - Related Data Allergies Allergy/AdvReac Type Severity Reaction Status Date / Time amitriptyline Allergy Tachycardia Verified 02/12/20 18:12 Home Meds: Home Meds Albuterol Sulfate [Albuterol Sulfate Hfa] 1 - 2 puff INH Q4HR PRN 07/15/19 [History] Escitalopram [Lexapro] 20 mg PO BEDTIME 08/22/19 [History] Fluticasone Propionate [Flonase] 2 spray NASBOTH BID 12/12/19 [History] amLODIPine [Norvasc] 10 mg PO DAILY 12/12/19 [History] traZODone 150 mg PO BEDTIME 12/12/19 [History] Meloxicam 7.5 mg BID PRN 02/12/20 [History] Montelukast [Singulair] 10 mg PO BEDTIME 02/12/20 [History] amLODIPine Besylate [Norvasc] 10 mg PO DAILY 02/12/20 [History] buPROPion HCL [Wellbutrin SR] 150 mg PO DAILY 02/12/20 [History] tiZANidine 2 mg PO TID PRN 02/12/20 [History] Past Medical History Cardiovascular History: Reports: Hypertension Respiratory History: Reports: Asthma Gastrointestinal History: Reports: Diverticulosis Genitourinary History: Reports: Renal Calculus, Renal Disease 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: Musculoskeletal History: Reports: Back Pain, Chronic, Other (See Below) Other Musculoskeletal History: back fusion Apr 2019, degenerative disc disease Psychiatric History: Reports: Anxiety, Depression, Panic Attack, Psych Hospitalization(s), Suicide Attempt Endocrine/Metabolic History: Reports: Obesity/BMI 30+ Hematologic History: Reports: Anemia Immunologic History: Reports: Other (See Below) (Allergies) Dermatologic History: Reports: Eczema - Infectious Disease History Infectious Disease History: Reports: Chicken Pox - Past Surgical History HEENT Surgical History: Reports: Oral Surgery GI Surgical History: Reports: Cholecystectomy, Colon, Colonoscopy, EGD Female Surgical History: Reports: Section, Lithotripsy/ESWL, Ureteral Stent Other Female Surgeries/Procedures: CS x 1 Neurological Surgical History: Reports: Lumbar Spine, Spinal Fusion Musculoskeletal Surgical History: Reports: Arthroscopic Knee Other Musculoskeletal Surgeries/Procedures:: L knee scope Social & Family History - Family History Family Medical History: Noncontributory - Caffeine Use Caffeine Use: Reports: Coffee, Soda - Living Situation & Occupation Occupation: Unemployed ED ROS GENERAL - Review of Systems Review Of Systems: See Below Constitutional: Reports: Fatigue. Denies: Fever, Chills HEENT: Reports: No Symptoms Respiratory: Reports: No Symptoms Cardiovascular: Reports: No Symptoms Endocrine: Reports: No Symptoms GI/Abdominal: Reports: No Symptoms : Reports: No Symptoms Musculoskeletal: Reports: No Symptoms Skin: Reports: No Symptoms Neurological: Reports: No Symptoms Psychiatric: Reports: Anxiety, Depression, Mood Lability, Suicidal Ideation. Denies: Hallucinations, Homicidal Ideation ED EXAM, GENERAL - Physical Exam Exam: See Below Exam Limited By: No Limitations General Appearance: Alert, Anxious, Mild Distress Ears: Normal External Exam, Normal TMs Nose: Normal Inspection Throat/Mouth: Normal Inspection, Normal Oropharynx Head: Atraumatic, Normocephalic Neck: Normal Inspection, Supple, Non-Tender Respiratory/Chest: No Respiratory Distress, Lungs Clear Cardiovascular: Normal Peripheral Pulses, Regular Rate, Rhythm, No Edema, No Murmur GI/Abdominal: Normal Bowel Sounds, Soft, Non-Tender Back Exam: Normal Inspection, Full Range of Motion Extremities: Normal Inspection, Normal Range of Motion Neurological: Alert, Oriented, CN II-XII Intact, No Motor/Sensory Deficits Psychiatric: Normal Affect Skin Exam: Warm Course - Vital Signs Text/Narrative:: pt remained cooperative here, hold was signed , EKG shows NSR, pt is being hydrated and she is resting comfortably . still awaiting lab results and placement, pt care will be handed to Dr eng at time of shift change. Last Recorded V/S: Last Vital Signs Temp 36.3 C 03/06/20 16:50 Pulse 86 03/06/20 16:50 Resp 20 03/06/20 16:50 BP 98/47 L 03/06/20 16:50 Pulse Ox 99 03/06/20 16:50 - Orders/Labs/Meds Orders: Active Orders 24 hr Category Date Time Status EKG Documentation Completion [RC] ASDIRECTED Care 03/06/20 17:11 Active DRUG SCREEN, URINE ALERE [URCHEM] Stat Lab 03/06/20 17:10 Ordered Sodium Chloride 0.9% [Normal Saline] 1,000 ml Med 03/06/20 17:10 Active IV .BOLUS Sodium Chloride 0.9% [Saline Flush] Med 03/06/20 17:41 Active 10 ml FLUSH ASDIRECTED PRN Peripheral IV Insertion Adult [OM.PC] Routine Oth 03/06/20 17:41 Ordered EKG 12 Lead [EK] Routine Ther 03/06/20 17:10 Ordered Medication Orders Sodium Chloride (Normal Saline) 1,000 mls @ 999 drops/hr IV .BOLUS ONE Stop: 03/07/20 08:10 Last Admin: 03/06/20 17:40 Dose: 999 drops/hr Documented by: ЕЛЕНА Sodium Chloride (Saline Flush) 10 ml FLUSH ASDIRECTED PRN PRN Reason: Keep Vein Open Last Admin: 03/06/20 17:30 Dose: 10 ml Documented by: ЕЛЕНА Labs: Laboratory Tests 03/06/20 03/06/20 03/06/20 Range/Units 17:30 17:30 17:30 WBC 8.6 (4.5-12.0) X10-3/uL RBC 4.93 (3.23-5.20) x10(6)uL Hgb 12.0 (11.5-15.5) g/dL Hct 38.3 (30.0-51.3) % MCV 77.7 L (80-96) fL MCH 24.5 L (27.7-33.6) pg MCHC 31.5 L (32.2-35.4) g/dL RDW 14.3 (11.5-15.5) % Plt Count 313 (125-369) X10(3)uL Sodium 139 (135-145) mmol/L Potassium 3.7 (3.5-5.3) mmol/L Chloride 104 (100-110) mmol/L Carbon Dioxide 26 (21-32) mmol/L BUN 13 (7-18) mg/dL Creatinine 0.9 (0.55-1.02) mg/dL Est Cr Clr Drug Dosing TNP Estimated GFR (MDRD) > 60 (>60) BUN/Creatinine Ratio 14.4 (9-20) Glucose 105 (80-116) mg/dL Calcium 8.9 (8.6-10.2) mg/dL Magnesium (1.8-2.5) mg/dL Total Bilirubin 0.2 (0.1-1.3) mg/dL AST 14 D (5-25) IU/L ALT 19 D (12-36) U/L Alkaline Phosphatase 137 H (56-112) IU/L Total Protein 7.5 (6.0-8.0) g/dL Albumin 3.5 (3.5-5.2) g/dL Globulin 4.0 g/dL Albumin/Globulin Ratio 0.9 TSH, Ultra Sensitive 1.43 (0.36-3.74) IU/mL Salicylates 1.7 L (<2.8) mg/dL Acetaminophen < 2 L (<2) ug/mL Ethyl Alcohol < 0.03 (<0.03) % 03/06/20 Range/Units 17:30 WBC (4.5-12.0) X10-3/uL RBC (3.23-5.20) x10(6)uL Hgb (11.5-15.5) g/dL Hct (30.0-51.3) % MCV (80-96) fL MCH (27.7-33.6) pg MCHC (32.2-35.4) g/dL RDW (11.5-15.5) % Plt Count (125-369) X10(3)uL Sodium (135-145) mmol/L Potassium (3.5-5.3) mmol/L Chloride (100-110) mmol/L Carbon Dioxide (21-32) mmol/L BUN (7-18) mg/dL Creatinine (0.55-1.02) mg/dL Est Cr Clr Drug Dosing Estimated GFR (MDRD) (>60) BUN/Creatinine Ratio (9-20) Glucose (80-116) mg/dL Calcium (8.6-10.2) mg/dL Magnesium 1.8 (1.8-2.5) mg/dL Total Bilirubin (0.1-1.3) mg/dL AST (5-25) IU/L ALT (12-36) U/L Alkaline Phosphatase (56-112) IU/L Total Protein (6.0-8.0) g/dL Albumin (3.5-5.2) g/dL Globulin g/dL Albumin/Globulin Ratio TSH, Ultra Sensitive (0.36-3.74) IU/mL Salicylates (<2.8) mg/dL Acetaminophen (<2) ug/mL Ethyl Alcohol (<0.03) % Meds: Medications Generic Name Dose Route Start Last Admin Trade Name Freq PRN Reason Stop Dose Admin Sodium Chloride 1,000 mls @ 999 drops/hr 03/06/20 17:10 03/06/20 17:40 Normal Saline IV 03/07/20 08:10 999 drops/hr .BOLUS ONE Administration Sodium Chloride 10 ml 03/06/20 17:41 03/06/20 17:30 Saline Flush FLUSH 10 ml ASDIRECTED PRN Administration Keep Vein Open Departure - Departure Time of Disposition: 18:37 Disposition: DC/Tfer to Other 70 Clinical Impression: Suicidal behavior - Discharge Information Referrals: PCP,None [Primary Care Provider] - Sepsis Event Note (ED) - Focused Exam Vital Signs: Vital Signs Temp Pulse Resp BP Pulse Ox 03/06/20 16:50 36.3 C 86 20 98/47 L 99 - My Orders Last 24 Hours: My Active Orders 03/06/20 17:10 DRUG SCREEN, URINE ALERE [URCHEM] Stat Sodium Chloride 0.9% [Normal Saline] 1,000 ml IV .BOLUS EKG 12 Lead [EK] Routine 03/06/20 17:11 EKG Documentation Completion [RC] ASDIRECTED 03/06/20 17:41 Sodium Chloride 0.9% [Saline Flush] 10 ml FLUSH ASDIRECTED PRN Peripheral IV Insertion Adult [OM.PC] Routine - Assessment/Plan Last 24 Hours: My Active Orders 03/06/20 17:10 DRUG SCREEN, URINE ALERE [URCHEM] Stat Sodium Chloride 0.9% [Normal Saline] 1,000 ml IV .BOLUS EKG 12 Lead [EK] Routine 03/06/20 17:11 EKG Documentation Completion [RC] ASDIRECTED 03/06/20 17:41 Sodium Chloride 0.9% [Saline Flush] 10 ml FLUSH ASDIRECTED PRN Peripheral IV Insertion Adult [OM.PC] Routine
[2020-03-06] MEDS ORDERED: Sodium Chloride 0.9% 1,000 ML IV ONE (17:10)
[2020-03-06] MEDS ORDERED: Sodium Chloride 0.9% 10 ML Syringe FLUSH PRN (17:41)
[2020-03-06 17:57] LABS: ACETAMINOPHEN < 2 ug/mL (<2)
== END 2020-03-06 21:10 | disposition other institution (70) ==
LOC: FB.ED 16:47
DX: R45.851 Suicidal ideations (principal); E66.9 Obesity, unspecified; F32.9 Major depressive disorder, single episode, unspecified; F41.0 Panic disorder [episodic paroxysmal anxiety]; J45.909 Unspecified asthma, uncomplicated; Z88.8 Allergy status to other drugs, medicaments and biological substances; Z79.899 Other long term (current) drug therapy
CPT/HCPCS: 36415; 80053; 80305; 80307; 83735; 84443; 85027; 93005; 99285; J7030

== ENCOUNTER 2020-04-25 22:46 | Emergency (ER) | payer MEDICAID ==
[2020-04-25] MEDS ORDERED: Morphine 4 MG/ML VIAL IVPUSH ONE (23:02)
[2020-04-25] MEDS ORDERED: Ondansetron 4 MG/2 ML SDV IVPUSH ONE (23:02)
[2020-04-25] MEDS ORDERED: Sodium Chloride 0.9% 1,000 ML IV SCH (23:15)
[2020-04-25] MEDS: Sodium Chloride 0.9% 10 ML Syringe FLUSH PRN (23:40)
[2020-04-26] MEDS ORDERED: Potassium Chloride 20 MEQ Tab.ER PO ONE (00:25)
--- NOTE | 2020-04-26 00:29 | EDM.PDOC ---
ED HPI GENERAL MEDICAL PROBLEM - General Chief Complaint: Flank Pain Stated Complaint: R SIDED PAIN Time Seen by Provider: 04/25/20 23:05 Source of Information: Reports: Patient History Limitations: Reports: No Limitations - History of Present Illness INITIAL COMMENTS - FREE TEXT/NARRATIVE: Patient presented to the ED because of rt flank pain which started last night. the pain is sharp and throbbing, 10/10 with associated N/V x2. There is no associated fever or chills. No diarrhea or constipation. right flank Pain Score (Numeric/FACES): 10 - Related Data Allergies Allergy/AdvReac Type Severity Reaction Status Date / Time amitriptyline Allergy Tachycardia Verified 04/26/20 00:24 Home Meds: Home Meds Albuterol Sulfate [Albuterol Sulfate Hfa] 1 - 2 puff INH Q4HR PRN 07/15/19 [History] Escitalopram [Lexapro] 20 mg PO BEDTIME 08/22/19 [History] Fluticasone Propionate [Flonase] 2 spray NASBOTH BID 12/12/19 [History] amLODIPine [Norvasc] 10 mg PO DAILY 12/12/19 [History] traZODone 150 mg PO BEDTIME 12/12/19 [History] Meloxicam 7.5 mg BID PRN 02/12/20 [History] Montelukast [Singulair] 10 mg PO BEDTIME 02/12/20 [History] amLODIPine Besylate [Norvasc] 10 mg PO DAILY 02/12/20 [History] buPROPion HCL [Wellbutrin SR] 150 mg PO DAILY 02/12/20 [History] tiZANidine 2 mg PO TID PRN 02/12/20 [History] Acetaminophen/oxyCODONE [Percocet 325-5 MG] 1 - 2 each PO Q6H PRN #10 tab 04/26/20 [Rx] Ondansetron [Zofran ODT] 4 mg PO Q4H PRN #7 tab.dis 04/26/20 [Rx] Tamsulosin [Tamsulosin 24 Hr] 0.4 mg PO DAILY #10 cap.er 04/26/20 [Rx] Past Medical History Cardiovascular History: Reports: Hypertension Respiratory History: Reports: Asthma Gastrointestinal History: Reports: Diverticulosis Genitourinary History: Reports: Renal Calculus, Renal Disease INTEGRATION DIRECTOR History: Reports: Other INTEGRATION DIRECTOR History: Musculoskeletal History: Reports: Back Pain, Chronic, Other (See Below) Other Musculoskeletal History: back fusion Apr 2019, degenerative disc disease Psychiatric History: Reports: Anxiety, Depression, Panic Attack, Psych Hospitalization(s), Suicide Attempt Endocrine/Metabolic History: Reports: Obesity/BMI 30+ Hematologic History: Reports: Anemia Immunologic History: Reports: Other (See Below) (Allergies) Dermatologic History: Reports: Eczema - Infectious Disease History Infectious Disease History: Reports: Chicken Pox - Past Surgical History HEENT Surgical History: Reports: Oral Surgery GI Surgical History: Reports: Cholecystectomy, Colon, Colonoscopy, EGD Female Surgical History: Reports: Section, Lithotripsy/ESWL, Ureteral Stent Other Female Surgeries/Procedures: CS x 1 Neurological Surgical History: Reports: Lumbar Spine, Spinal Fusion Musculoskeletal Surgical History: Reports: Arthroscopic Knee Other Musculoskeletal Surgeries/Procedures:: L knee scope Social & Family History - Family History Family Medical History: Noncontributory - Caffeine Use Caffeine Use: Reports: Coffee, Soda - Living Situation & Occupation Occupation: Unemployed ED ROS GENERAL - Review of Systems Review Of Systems: See Below Constitutional: Reports: No Symptoms HEENT: Reports: No Symptoms Respiratory: Reports: No Symptoms Cardiovascular: Reports: No Symptoms Endocrine: Reports: No Symptoms GI/Abdominal: Reports: Abdominal Pain, Nausea, Vomiting : Reports: No Symptoms Musculoskeletal: Reports: No Symptoms Skin: Reports: No Symptoms Neurological: Reports: No Symptoms Psychiatric: Reports: No Symptoms ED EXAM, GI/ABD - Physical Exam Exam: See Below Exam Limited By: No Limitations General Appearance: Alert, No Apparent Distress Ears: Normal External Exam, Normal Canal Nose: Normal Inspection, Normal Mucosa Throat/Mouth: Normal Inspection, Normal Lips Head: Atraumatic, Normocephalic Neck: Normal Inspection Respiratory/Chest: No Respiratory Distress, Lungs Clear, Normal Breath Sounds Cardiovascular: Normal Peripheral Pulses, Regular Rate, Rhythm, No Edema GI/Abdominal Exam: Normal Bowel Sounds, Soft, Tender Back Exam: Normal Inspection, Full Range of Motion Course - Vital Signs Text/Narrative:: Labs/Abd-pelvic CT was discussed with patient and verbalized full understanding NS 1 L bokus Zofran 4 mg IV x1 Toradol 30 mg IV Morphine 4 mg IV x1 Klor con 40 meq po x1 Patient was upset that i didn't give her dilaudid. She got the maximum dose for morphine and toradol. She also want to be transferred to [facility] and I told her that she doesn't require any medical transfer because her kidney stone is non-obstructing and this is something that can be managed as an out patient. Last Recorded V/S: Last Vital Signs Temp 36.8 C 04/25/20 22:46 Pulse 98 04/26/20 01:20 Resp 16 04/26/20 01:20 BP 141/69 H 04/26/20 01:20 Pulse Ox 100 04/26/20 01:20 - Orders/Labs/Meds Orders: Active Orders 24 hr Category Date Time Status Abdomen Pelvis wo Cont [CT] Stat Exams 04/25/20 23:04 Taken Saline Lock Insert [OM.PC] Routine Oth 04/25/20 23:01 Ordered Labs: Laboratory Tests 04/25/20 04/25/20 04/25/20 Range/Units 23:06 23:15 23:15 WBC 11.9 (4.5-12.0) X10-3/uL RBC 5.20 (3.23-5.20) x10(6)uL Hgb 13.2 (11.5-15.5) g/dL Hct 41.0 (30.0-51.3) % MCV 78.8 L (80-96) fL MCH 25.4 L (27.7-33.6) pg MCHC 32.2 (32.2-35.4) g/dL RDW 15.4 (11.5-15.5) % Plt Count 295 (125-369) X10(3)uL MPV 7.8 (7.4-10.4) fL Neut % (Auto) 70.3 (46-82) % Lymph % (Auto) 21.7 (13-37) % [place] % (Auto) 5.9 (4-12) % Eos % (Auto) 2 (1.0-5.0) % Baso % (Auto) 1 (0-2) % Neut # (Auto) 8.3 (1.6-8.3) # Lymph # (Auto) 2.6 (0.6-5.0) # Harris # (Auto) 0.7 (0.0-1.3) # Eos # (Auto) 0.2 (0.0-0.8) # Baso # (Auto) 0.1 (0.0-0.2) # Sodium 138 (135-145) mmol/L Potassium 3.3 L (3.5-5.3) mmol/L Chloride 102 (100-110) mmol/L Carbon Dioxide 24 (21-32) mmol/L BUN 12 (7-18) mg/dL Creatinine 0.9 (0.55-1.02) mg/dL Est Cr Clr Drug Dosing TNP Estimated GFR (MDRD) > 60 (>60) BUN/Creatinine Ratio 13.3 (9-20) Glucose 102 (80-116) mg/dL Calcium 9.4 (8.6-10.2) mg/dL Urine Color Yellow (YELLOW) Urine Appearance Clear (CLEAR) Urine pH 6.5 (5.0-6.5) Ur Specific [place] 1.015 (1.010-1.025) Urine Protein Negative (NEGATIVE) mg/dL Urine Glucose (UA) Normal (NORMAL) mg/dL Urine Ketones Negative (NEGATIVE) mg/dL Urine Occult Blood Negative (NEGATIVE) Urine Nitrite Negative (NEGATIVE) Urine Bilirubin Negative (NEGATIVE) Urine Urobilinogen Normal (NEGATIVE) mg/dL Ur Leukocyte Esterase Negative (NEGATIVE) Urine RBC 0-5 (0-5) Urine WBC 0-5 (0-5) Ur Squamous Epith Cells Occasional (NS,R,O) Urine Bacteria Few H (NS) Meds: Medications Discontinued Medications Generic Name Dose Route Start Last Admin Trade Name Freq PRN Reason Stop Dose Admin Sodium Chloride 1,000 mls @ 999 mls/hr 04/25/20 23:15 04/25/20 23:45 Normal Saline IV 999 mls/hr ASDIRECTED GAVIN Administration Ketorolac Tromethamine 30 mg 04/26/20 00:34 04/26/20 00:45 Toradol IVPUSH 04/26/20 00:35 30 mg ONETIME ONE Administration Morphine Sulfate 4 mg 04/25/20 23:02 04/25/20 23:45 Morphine IVPUSH 04/25/20 23:03 4 mg ONETIME ONE Administration Ondansetron HCl 4 mg 04/25/20 23:02 04/25/20 23:43 Zofran IVPUSH 04/25/20 23:03 4 mg ONETIME ONE Administration Potassium Chloride 40 meq 04/26/20 00:25 04/26/20 00:45 Klor-Con M20 PO 04/26/20 00:26 40 meq ONETIME ONE Administration Sodium Chloride 10 ml 04/25/20 23:01 04/26/20 00:47 Saline Flush FLUSH 10 ml ASDIRECTED PRN Administration Keep Vein Open Departure - Departure Time of Disposition: 01:40 Disposition: Home, Self-Care 01 Condition: Good Clinical Impression: Nephrolithiasis - Discharge Information Prescriptions: Tamsulosin [Tamsulosin 24 Hr] 0.4 mg PO DAILY #10 cap.er Acetaminophen/oxyCODONE [Percocet 325-5 MG] 1 - 2 each PO Q6H PRN #10 tab PRN Reason: Pain Ondansetron [Zofran ODT] 4 mg PO Q4H PRN #7 tab.dis PRN Reason: Nausea Instructions: Hypokalemia, Kidney Stones, [id number] Referrals: PCP,None [Primary Care Provider] - Forms: ED Department Discharge Additional Instructions: Please read discharge instructions on kidney stones Increase oral fluids 2-3 liters a day Zofran ODT 4 mg every 4 hours as needed for nausea Percocet 5/325, 1-2 tablets every 4-6 hours as needed for pain Flomax 1 tablet daily Follow up with your doctor today so you can be referred to see the urologist if needed Sepsis Event Note (ED) - Focused Exam Vital Signs: Vital Signs Temp Pulse Resp BP Pulse Ox 04/26/20 01:20 98 16 141/69 H 100 04/25/20 22:46 36.8 C 99 18 157/88 H 100 - My Orders Last 24 Hours: My Active Orders 04/25/20 23:01 Saline Lock Insert [OM.PC] Routine 04/25/20 23:04 Abdomen Pelvis wo Cont [CT] Stat - Assessment/Plan Last 24 Hours: My Active Orders 04/25/20 23:01 Saline Lock Insert [OM.PC] Routine 04/25/20 23:04 Abdomen Pelvis wo Cont [CT] Stat
[2020-04-26] MEDS ORDERED: Ketorolac 30 MG/ML SDV IVPUSH ONE (00:34)
[2020-04-26] MEDS: Sodium Chloride 0.9% 10 ML Syringe FLUSH PRN (00:47)
== END 2020-04-26 01:50 | disposition home or self-care (01) ==
LOC: FB.ED 22:46
DX: N13.2 Hydronephrosis with renal and ureteral calculous obstruction (principal); I10 Essential (primary) hypertension; J45.909 Unspecified asthma, uncomplicated; F41.9 Anxiety disorder, unspecified; F32.9 Major depressive disorder, single episode, unspecified; E66.9 Obesity, unspecified; Z68.38 Body mass index [BMI] 38.0-38.9, adult; Z88.8 Allergy status to other drugs, medicaments and biological substances; Z79.899 Other long term (current) drug therapy
CPT/HCPCS: 36415; 74176; 80048; 81001; 85025; 96361; 96374; 96375; 99285; A9270; J1885; J2270; J2405; J7030; 99284

== ENCOUNTER 2020-06-02 08:10 | Inpatient (IN) | payer MEDICAID ==
[2020-06-02] MEDS ORDERED: Sodium Chloride 0.9% 1,000 ML IV ONE (08:18)
[2020-06-02] MEDS ORDERED: Acetaminophen 500 MG Tab PO ONE (08:21)
[2020-06-02] MEDS ORDERED: Levofloxacin/Dextrose 5%-Water 500 MG in Premix Bag 1 BAG IV ONE (08:24)
--- NOTE | 2020-06-02 09:26 | PCM.SN.2 ---
- Free Text/Narrative Note: Was called by ER nurse/physician to start an IV. Patient had a procedure yesterday and has a 102 temperature today. She has a history of difficult Blood draw and IV start. Lab has also asked me to draw blood after RN and lab is unable to obtain venous access. Blood drawn from right arm and given to lab. IV attempted times three with success in the right arm with 20 jelco, flushed well with 10cc's of saline flush. Sterile technique used throughout.
--- NOTE | 2020-06-02 09:32 | EDM.PDOC ---
ED HPI GENERAL MEDICAL PROBLEM - General Stated Complaint: KIDNEY ISSUIES,FEVER Time Seen by Provider: 06/02/20 09:10 Source of Information: Reports: Patient History Limitations: Reports: No Limitations - History of Present Illness INITIAL COMMENTS - FREE TEXT/NARRATIVE: pt states she had lithotripsy in [facility] for renal calculi done yesterday . Still had right sided flank pain . But this am in addition to the right sided flank pain developed temp of 100 .3 , pain in back got worse . Also has dizziness , nausea . Was given a scopolamine patch. Pt is also on Ciprofloxacin , tylenol #3 Has not taken any of the medication prescribed though has them with her Onset: Gradual Onset Date: 06/01/20 Onset Time: 22:00 Duration: Getting Worse Location: Reports: Abdomen, Back, Upper Extremity, Right Quality: Reports: Ache, Dull, Throbbing Severity: Moderate Improves with: Reports: Rest. Denies: None Worsens with: Reports: Breathing, Movement Context: Reports: Other (pt is post procedure yesterday ( lithotripsy) .states she still has stones) Associated Symptoms: Reports: Fever/Chills, Weakness - Related Data Allergies Allergy/AdvReac Type Severity Reaction Status Date / Time amitriptyline Allergy Tachycardia Verified 04/26/20 00:24 Home Meds: Home Meds Albuterol Sulfate [Albuterol Sulfate Hfa] 1 - 2 puff INH Q4HR PRN 07/15/19 [History] Escitalopram [Lexapro] 20 mg PO BEDTIME 08/22/19 [History] Fluticasone Propionate [Flonase] 2 spray NASBOTH BID 12/12/19 [History] amLODIPine [Norvasc] 10 mg PO DAILY 12/12/19 [History] traZODone 150 mg PO BEDTIME 12/12/19 [History] Meloxicam 7.5 mg BID PRN 02/12/20 [History] Montelukast [Singulair] 10 mg PO BEDTIME 02/12/20 [History] amLODIPine Besylate [Norvasc] 10 mg PO DAILY 02/12/20 [History] buPROPion HCL [Wellbutrin SR] 150 mg PO DAILY 02/12/20 [History] tiZANidine 2 mg PO TID PRN 02/12/20 [History] Acetaminophen/oxyCODONE [Percocet 325-5 MG] 1 - 2 each PO Q6H PRN #10 tab 04/26/20 [Rx] Ondansetron [Zofran ODT] 4 mg PO Q4H PRN #7 tab.dis 04/26/20 [Rx] Tamsulosin [Tamsulosin 24 Hr] 0.4 mg PO DAILY #10 cap.er 04/26/20 [Rx] Past Medical History Cardiovascular History: Reports: Hypertension Respiratory History: Reports: Asthma Gastrointestinal History: Reports: Diverticulosis Genitourinary History: Reports: Renal Calculus, Renal Disease Other Genitourinary History: lithotripsy ARMED GUARD History: Reports: Other ARMED GUARD History: Musculoskeletal History: Reports: Back Pain, Chronic, Other (See Below) Other Musculoskeletal History: back fusion Apr 2019, degenerative disc disease Psychiatric History: Reports: Anxiety, Depression, Panic Attack, Psych Hospitalization(s), Suicide Attempt Endocrine/Metabolic History: Reports: Obesity/BMI 30+ Hematologic History: Reports: Anemia Immunologic History: Reports: Other (See Below) Dermatologic History: Reports: Eczema - Infectious Disease History Infectious Disease History: Reports: Chicken Pox - Past Surgical History HEENT Surgical History: Reports: Oral Surgery GI Surgical History: Reports: Cholecystectomy, Colon, Colonoscopy, EGD Female Surgical History: Reports: Section, Lithotripsy/ESWL, Ureteral Stent Other Female Surgeries/Procedures: CS x 1 Neurological Surgical History: Reports: Lumbar Spine, Spinal Fusion Musculoskeletal Surgical History: Reports: Arthroscopic Knee Other Musculoskeletal Surgeries/Procedures:: L knee scope Social & Family History - Family History Family Medical History: Noncontributory - Tobacco Use Smoking Status *Q: Never Smoker - Caffeine Use Caffeine Use: Reports: Coffee, Soda - Living Situation & Occupation Occupation: Unemployed ED ROS GENERAL - Review of Systems Review Of Systems: See Below Constitutional: Reports: Fever, Chills, Malaise, Weakness, Decreased Appetite HEENT: Reports: No Symptoms Respiratory: Reports: No Symptoms Cardiovascular: Reports: No Symptoms Endocrine: Reports: No Symptoms GI/Abdominal: Reports: Abdominal Pain (suprapubic pain ) : Reports: Pain, Urgency Musculoskeletal: Reports: No Symptoms Skin: Reports: No Symptoms Neurological: Reports: Dizziness, Numbness, Tingling Psychiatric: Reports: Anxiety Hematologic/Lymphatic: Reports: No Symptoms Immunologic: Reports: No Symptoms ED EXAM, RENAL/ - Physical Exam Exam: See Below Exam Limited By: No Limitations General Appearance: Alert, WD/WN, Anxious Eye Exam: Bilateral Eye: Foreign Body, Normal Fundi, Normal Inspection, Nystagmus Ears: Normal External Exam Nose: Normal Inspection Throat/Mouth: Normal Inspection, No Airway Compromise Head: Atraumatic, Normocephalic Neck: Normal Inspection, Supple Respiratory/Chest: No Respiratory Distress, Lungs Clear, Normal Breath Sounds Cardiovascular: Normal Peripheral Pulses, Regular Rate, Rhythm GI/Abdominal: Soft, Non-Tender Back Exam: Normal Inspection, CVA Tenderness (R), Decreased Range of Motion, Muscle Spasm Extremities: Normal Inspection. No: No Pedal Edema Neurological: Alert, Oriented, CN II-XII Intact, Normal Cognition, Confused Psychiatric: Anxious Skin Exam: Warm, Dry, Intact Lymphatic: No Adenopathy Course - Orders/Labs/Meds Orders: Active Orders 24 hr Category Date Time Status CORONAVIRUS COVID-19, WARREN Stat Lab 06/02/20 08:19 Ordered CULTURE BLOOD [BC] Urgent Lab 06/02/20 08:35 Received CULTURE BLOOD [BC] Urgent Lab 06/02/20 09:05 Received CULTURE URINE [RM] Stat Lab 06/02/20 08:17 Received Sodium Chloride 0.9% [Normal Saline] 1,000 ml Med 06/02/20 11:45 Active IV ASDIRECTED Blood Culture x2 Reflex Set [OM.PC] Urgent Oth 06/02/20 08:20 Ordered Medication Orders Sodium Chloride (Normal Saline) 1,000 mls @ 250 mls/hr IV ASDIRECTED GAVIN Labs: Laboratory Tests 06/02/20 06/02/20 06/02/20 Range/Units 08:17 08:35 08:35 WBC 13.4 H (4.5-12.0) X10-3/uL RBC 4.80 (3.23-5.20) x10(6)uL Hgb 12.2 (11.5-15.5) g/dL Hct 38.5 (30.0-51.3) % MCV 80.2 (80-96) fL MCH 25.4 L (27.7-33.6) pg MCHC 31.7 L (32.2-35.4) g/dL RDW 15.4 (11.5-15.5) % Plt Count 269 (125-369) X10(3)uL MPV 7.9 (7.4-10.4) fL Neut % (Auto) 79.8 (46-82) % Lymph % (Auto) 10.8 L (13-37) % [place] % (Auto) 8.3 (4-12) % Eos % (Auto) 1 (1.0-5.0) % Baso % (Auto) 0 (0-2) % Neut # (Auto) 10.7 H (1.6-8.3) # Lymph # (Auto) 1.4 (0.6-5.0) # [place] # (Auto) 1.1 (0.0-1.3) # Eos # (Auto) 0.1 (0.0-0.8) # Baso # (Auto) 0.1 (0.0-0.2) # Sodium 143 (135-145) mmol/L Potassium 3.7 (3.5-5.3) mmol/L Chloride 105 (100-110) mmol/L Carbon Dioxide 27 (21-32) mmol/L BUN 16 (7-18) mg/dL Creatinine 1.1 H (0.55-1.02) mg/dL Est Cr Clr Drug Dosing TNP Estimated GFR (MDRD) 58 L (>60) BUN/Creatinine Ratio 14.5 (9-20) Glucose 108 (80-116) mg/dL Calcium 9.5 (8.6-10.2) mg/dL C-Reactive Protein (0.5-0.9) mg/dL Urine Color Yellow (YELLOW) Urine Appearance Slightly cloudy (CLEAR) Urine pH 7.0 H (5.0-6.5) Ur Specific [place] 1.010 (1.010-1.025) Urine Protein 30 H (NEGATIVE) mg/dL Urine Glucose (UA) Normal (NORMAL) mg/dL Urine Ketones Negative (NEGATIVE) mg/dL Urine Occult Blood Large H (NEGATIVE) Urine Nitrite Negative (NEGATIVE) Urine Bilirubin Negative (NEGATIVE) Urine Urobilinogen Normal (NEGATIVE) mg/dL Ur Leukocyte Esterase Moderate H (NEGATIVE) Urine RBC 75-100 H (0-5) Urine WBC 5-10 H (0-5) Ur Squamous Epith Cells Few H (NS,R,O) Urine Bacteria Few H (NS) 06/02/20 Range/Units 08:35 WBC (4.5-12.0) X10-3/uL RBC (3.23-5.20) x10(6)uL Hgb (11.5-15.5) g/dL Hct (30.0-51.3) % MCV (80-96) fL MCH (27.7-33.6) pg MCHC (32.2-35.4) g/dL RDW (11.5-15.5) % Plt Count (125-369) X10(3)uL MPV (7.4-10.4) fL Neut % (Auto) (46-82) % Lymph % (Auto) (13-37) % [place] % (Auto) (4-12) % Eos % (Auto) (1.0-5.0) % Baso % (Auto) (0-2) % Neut # (Auto) (1.6-8.3) # Lymph # (Auto) (0.6-5.0) # [place] # (Auto) (0.0-1.3) # Eos # (Auto) (0.0-0.8) # Baso # (Auto) (0.0-0.2) # Sodium (135-145) mmol/L Potassium (3.5-5.3) mmol/L Chloride (100-110) mmol/L Carbon Dioxide (21-32) mmol/L BUN (7-18) mg/dL Creatinine (0.55-1.02) mg/dL Est Cr Clr Drug Dosing Estimated GFR (MDRD) (>60) BUN/Creatinine Ratio (9-20) Glucose (80-116) mg/dL Calcium (8.6-10.2) mg/dL C-Reactive Protein 2.5 H (0.5-0.9) mg/dL Urine Color (YELLOW) Urine Appearance (CLEAR) Urine pH (5.0-6.5) Ur Specific [place] (1.010-1.025) Urine Protein (NEGATIVE) mg/dL Urine Glucose (UA) (NORMAL) mg/dL Urine Ketones (NEGATIVE) mg/dL Urine Occult Blood (NEGATIVE) Urine Nitrite (NEGATIVE) Urine Bilirubin (NEGATIVE) Urine Urobilinogen (NEGATIVE) mg/dL Ur Leukocyte Esterase (NEGATIVE) Urine RBC (0-5) Urine WBC (0-5) Ur Squamous Epith Cells (NS,R,O) Urine Bacteria (NS) Meds: Medications Generic Name Dose Route Start Last Admin Trade Name Freq PRN Reason Stop Dose Admin Sodium Chloride 1,000 mls @ 250 mls/hr 06/02/20 11:45 Normal Saline IV ASDIRECTED GAVIN Discontinued Medications Generic Name Dose Route Start Last Admin Trade Name Freq PRN Reason Stop Dose Admin Acetaminophen 1,000 mg 06/02/20 08:21 06/02/20 08:38 Tylenol Extra Strength PO 06/02/20 08:22 1,000 mg ONETIME ONE Administration Sodium Chloride 1,000 mls @ 999 mls/hr 06/02/20 08:18 06/02/20 09:26 Normal Saline IV 06/02/20 09:18 999 mls/hr .BOLUS ONE Administration Levofloxacin/Dextrose 500 mg/ 100 mls @ 100 mls/hr 06/02/20 08:24 06/02/20 09:28 Premix IV 06/02/20 09:23 100 mls/hr ONETIME ONE Administration Ceftriaxone Sodium 1 gm/ 50 mls @ 200 mls/hr 06/02/20 11:24 06/02/20 11:42 Sodium Chloride IV 06/02/20 11:38 200 mls/hr ONETIME ONE Administration Ketorolac Tromethamine 30 mg 06/02/20 09:46 06/02/20 09:51 Toradol IVPUSH 06/02/20 09:47 30 mg ONETIME ONE Administration - Re-Assessments/Exams Free Text/Narrative Re-Assessment/Exam: 06/02/20 12:43 pt was given IVF levaquin and toradol , Still states she felt lousy , weak \Was able to to eat a lunch tray Was given a dose of Rocephin Still states she is not feeling better call made to identification and records commander provider will admit pt for further management Departure - Departure Time of Disposition: 12:40 Disposition: Admitted As Inpatient 68 Clinical Impression: UTI, Urinary tract infectious disease, Status post laser lithotripsy of ureteral calculus, Back pain due to inflammatory process - Discharge Information *PRESCRIPTION DRUG MONITORING PROGRAM REVIEWED*: Not Applicable *COPY OF PRESCRIPTION DRUG MONITORING REPORT IN PATIENT TRICIA: Not Applicable Referrals: PCP,None [Ordering Only Provider] - Sepsis Event Note (ED) - Evaluation Current Stage of Sepsis: Ruled Out Reason for Ruling Out Sepsis: no fever , labs normal ED Communication - ED Communication Date/Time Date: 06/02/20 Time Called: 12:40 - Discussed Case With (1) Discussed Case With (1): Admitting Provider - Conversation Summary Admitting Provider Agreed to Patient's Admission: Yes Patient Aware of Amendments fo Care Plan: Yes - My Orders Last 24 Hours: My Active Orders 06/02/20 08:17 CULTURE URINE [RM] Stat 06/02/20 08:19 CORONAVIRUS COVID-19, WARREN Stat 06/02/20 08:20 Blood Culture x2 Reflex Set [OM.PC] Urgent 06/02/20 08:35 CULTURE BLOOD [BC] Urgent 06/02/20 09:05 CULTURE BLOOD [BC] Urgent 06/02/20 11:45 Sodium Chloride 0.9% [Normal Saline] 1,000 ml IV ASDIRECTED - Assessment/Plan Last 24 Hours: My Active Orders 06/02/20 08:17 CULTURE URINE [RM] Stat 06/02/20 08:19 CORONAVIRUS COVID-19, WARREN Stat 06/02/20 08:20 Blood Culture x2 Reflex Set [OM.PC] Urgent 06/02/20 08:35 CULTURE BLOOD [BC] Urgent 06/02/20 09:05 CULTURE BLOOD [BC] Urgent 06/02/20 11:45 Sodium Chloride 0.9% [Normal Saline] 1,000 ml IV ASDIRECTED
[2020-06-02] MEDS ORDERED: Ketorolac 30 MG/ML SDV IVPUSH ONE (09:46)
[2020-06-02] MEDS ORDERED: cefTRIAXone 1 GM in Sodium Chloride 0.9% 50 ML IV ONE (11:24)
[2020-06-02] MEDS ORDERED: Morphine 10 MG/ML SDV SUBCUT ONE (14:50)
[2020-06-02] MEDS ORDERED: Promethazine 25 MG Tab PO PRN (14:56)
[2020-06-02] MEDS ORDERED: Gentamicin 40 MG/ML 2 ML Vial IV SCH (15:00)
[2020-06-02] MEDS ORDERED: Fluticasone Propionate Nasal Spray 16 GM Bottle NASBOTH PRN (15:33)
[2020-06-02] MEDS ORDERED: Albuterol 8 GM Inhaler INH PRN (15:33)
[2020-06-02] MEDS ORDERED: Albuterol 0.083% 2.5 MG/3 ML Neb Soln NEB PRN (15:33)
[2020-06-02] MEDS ORDERED: Triamcinolone Acetonide 0.1% Crm 15 GM Tube TOP PRN (15:33)
[2020-06-02] MEDS: Acetaminophen 325 MG Tab PO PRN (15:39)
[2020-06-02] MEDS ORDERED: Meloxicam 7.5 MG Tab PO PRN (15:55)
[2020-06-02] MEDS: Sodium Chloride 0.9% 1,000 ML IV SCH (16:09)
[2020-06-02] MEDS: Gentamicin 300 MG in Sodium Chloride 0.9% 100 ML IV SCH (16:27)
[2020-06-02] MEDS: Acetaminophen/HYDROcodone 325-5 MG Tab PO PRN (19:02)
[2020-06-02] MEDS: ClonazePAM 0.5 MG Tab PO SCH (20:32)
[2020-06-02] MEDS: OXcarbazepine 300 MG Tab PO SCH (20:33)
[2020-06-02] MEDS: Montelukast 10 MG Tab PO SCH (20:33)
[2020-06-02] MEDS: amLODIPine 10 MG Tab PO SCH (20:35)
[2020-06-02] MEDS: Ondansetron 4 MG/2 ML SDV IVPUSH PRN (21:18)
--- NOTE | 2020-06-02 21:41 | HP ---
ADMISSION DATE: 06/02/2020 HISTORY: Morgan is a 34-year-old woman with a remote history of kidney stones, lithotripsy, stent, and clearing many years ago. She was found to have a residual stone of about 7 mm on a previous admission here and was arranged to follow up with Urology. Yesterday, she underwent a lithotripsy and stent placement for a right-sided kidney stone. She seemed to tolerate the procedure well, went home, and during the night had intermittent flank pain and development of fever. She came in the emergency room at [facility] this morning with fever and pain. She was found to have likely pyelonephritis. She was treated with IV Levaquin and IV Rocephin and pain medication, and she is now admitted to acute care. Morgan still states she is having fever, chills. PAST MEDICAL HISTORY: She is status post spinal fusion, cholecystectomy, C- section x1, and the previous urological procedure as mentioned. She has also had asthma, anxiety, and depression. MEDICATIONS: 1. Singulair 10 mg daily. 2. Trileptal 300 mg b.i.d. 3. Amlodipine 10 mg at bedtime. 4. Albuterol p.r.n. 5. Klonopin 0.5 mg at bedtime. 6. Meloxicam 7.5 mg b.i.d. p.r.n. 7. Albuterol nebulizer p.r.n. 8. Cymbalta 30 mg daily. 9. Flonase 2 squirts b.i.d. p.r.n. 10.Inderal LA 80 mg daily. 11.Triamcinolone b.i.d. p.r.n. ALLERGIES: Amitriptyline caused rapid heartbeat. HABITS: She is a nonsmoker. Occasional alcohol. No other drugs. FAMILY AND SOCIAL HISTORY: The patient is engaged and lives in [place]. Her fiance manages apartments in [place]. She grew up in [facility]. She had one child by who was born prematurely and subsequently . REVIEW OF SYSTEMS: GENERAL: No seizure, syncope, or recent significant weight change. SKIN: Negative for rash. HEENT: No recent change in hearing or vision. No sore throat or URI. No respiratory infection symptoms. No cough. No chest pain or palpitations. She does have some right-sided flank area abdominal pain just since the urological procedure. She has had some nausea as well. No diarrhea or constipation. No joint inflammation or skin rash. PHYSICAL EXAMINATION: GENERAL: She is alert, but febrile. VITAL SIGNS: Blood pressure 112/72, pulse 100 and regular, respirations normal. SKIN: Anicteric, warm, dry without rash. HEENT: Show TMs to be clear. Pupils equal and reactive. Oropharynx clear. LUNGS: Clear to the bases. There is slight right CVA tenderness. HEART: Regular without murmur or gallop. ABDOMEN: Normal bowel sounds. Soft. She has tenderness in the right upper quadrant and mildly in the right lower quadrant. EXTREMITIES: Show no edema. LABORATORY: White count 13,400, hemoglobin 12, platelets 269. Electrolytes normal. BUN 16, creatinine 1.1. CRP 2.5. Urinalysis; 75 to 100 red cells, 5 to 10 white cells, negative nitrite. ASSESSMENT: 1. Acute pyelonephritis, post ureteral instrumentation and stent. 2. Renal stone, post lithotripsy. 3. Asthma, quiescent. 4. Chronic allergic rhinitis. 5. Anxiety and depression. PLAN: She is admitted. We will continue IV antibiotics with IV gentamicin. We will continue pain control as needed and her previous outpatient medications. Anticipate a 48- to 72-hour hospital stay followed by return to home. /[id number] HAKEEM/ELINA
[2020-06-03] MEDS: Sodium Chloride 0.9% 1,000 ML IV SCH ×3 (00:27→16:00)
[2020-06-03] MEDS: Acetaminophen/HYDROcodone 325-5 MG Tab PO PRN ×2 (02:10→22:18)
[2020-06-03] MEDS: Acetaminophen 325 MG Tab PO PRN ×2 (02:11→07:38)
[2020-06-03] MEDS: Ondansetron 4 MG/2 ML SDV IVPUSH PRN ×2 (08:02→22:23)
[2020-06-03] MEDS: OXcarbazepine 300 MG Tab PO SCH ×2 (08:11→22:22)
[2020-06-03] MEDS: DULoxetine 30 MG Cap PO SCH (08:12)
[2020-06-03] MEDS: Propranolol 80 MG Cap.ER PO SCH (08:12)
[2020-06-03] MEDS ORDERED: Acetaminophen 650 MG Supp RECTAL PRN (08:30)
[2020-06-03] MEDS: Piperacillin/Tazobactam 3.375 GM in Sodium Chloride 0.9% 50 ML IV SCH ×3 (09:29→20:25)
[2020-06-03] MEDS: Saccharomyces Boulardii (Probiotic) 250 MG Cap PO SCH ×2 (09:38→22:21)
[2020-06-03] MEDS: Potassium Chloride 10 MEQ Tab.ER PO SCH ×2 (09:38→22:27)
[2020-06-03] MEDS: Gentamicin 300 MG in Sodium Chloride 0.9% 100 ML IV SCH (16:04)
[2020-06-03] MEDS ORDERED: Sodium Chloride 0.9% 500 ML IV ONE ×2 (16:15→17:23)
[2020-06-03] MEDS ORDERED: Sodium Chloride 0.9% 1,000 ML IV SCH (17:45)
[2020-06-03] MEDS ORDERED: Sodium Chloride 0.9% 1,000 ML IV ONE (20:00)
[2020-06-03] MEDS: Ibuprofen 400 MG Tab PO PRN (22:19)
[2020-06-03] MEDS: ClonazePAM 0.5 MG Tab PO SCH (22:21)
[2020-06-03] MEDS: Montelukast 10 MG Tab PO SCH (22:22)
[2020-06-03] MEDS: amLODIPine 10 MG Tab PO SCH (22:22)
[2020-06-04] MEDS: Sodium Chloride 0.9% 1,000 ML IV SCH ×4 (00:15→20:44)
[2020-06-04] MEDS: Piperacillin/Tazobactam 3.375 GM in Sodium Chloride 0.9% 50 ML IV SCH ×4 (02:32→20:40)
[2020-06-04] MEDS: OXcarbazepine 300 MG Tab PO SCH ×2 (08:17→20:41)
[2020-06-04] MEDS: DULoxetine 30 MG Cap PO SCH (08:17)
[2020-06-04] MEDS: Propranolol 80 MG Cap.ER PO SCH (08:17)
[2020-06-04] MEDS: Saccharomyces Boulardii (Probiotic) 250 MG Cap PO SCH ×2 (08:20→20:41)
[2020-06-04] MEDS: Potassium Chloride 10 MEQ Tab.ER PO SCH ×2 (08:20→20:41)
[2020-06-04] MEDS: Acetaminophen/HYDROcodone 325-5 MG Tab PO PRN ×2 (13:22→20:42)
[2020-06-04] MEDS: Gentamicin 300 MG in Sodium Chloride 0.9% 100 ML IV SCH (16:37)
[2020-06-04] MEDS: Ibuprofen 400 MG Tab PO PRN (20:41)
[2020-06-04] MEDS: Montelukast 10 MG Tab PO SCH (20:41)
[2020-06-04] MEDS: ClonazePAM 0.5 MG Tab PO SCH (20:41)
[2020-06-05] MEDS: Acetaminophen/HYDROcodone 325-5 MG Tab PO PRN (00:54)
[2020-06-05] MEDS: Piperacillin/Tazobactam 3.375 GM in Sodium Chloride 0.9% 50 ML IV SCH ×4 (02:22→21:28)
[2020-06-05] MEDS ORDERED: Iopamidol 755 Mg/ML 100 ML Bottle IV ONE (08:27)
[2020-06-05] MEDS: Potassium Chloride 10 MEQ Tab.ER PO SCH ×2 (08:37→21:07)
[2020-06-05] MEDS: Saccharomyces Boulardii (Probiotic) 250 MG Cap PO SCH ×2 (08:37→21:07)
[2020-06-05] MEDS: Propranolol 80 MG Cap.ER PO SCH (08:37)
[2020-06-05] MEDS: OXcarbazepine 300 MG Tab PO SCH ×2 (08:38→21:09)
[2020-06-05] MEDS: DULoxetine 30 MG Cap PO SCH (08:38)
--- NOTE | 2020-06-05 09:35 | PN ---
DATE SEEN: 06/03/2020 HISTORY: Morgan is a 34-year-old who underwent lithotripsy and stent placement in the right ureter for a kidney stone approximately 2 days ago. She subsequently developed a fever and flank pain, and came in through the emergency room where she was admitted. She was started on IV antibiotics, receiving a dose of Rocephin and Levaquin yesterday. She was then started on IV gentamicin. Overnight, she continued to have a high fever up to 104 with shaking chills. She had normal bowel movement this morning, but still complains of significant right flank area pain. PHYSICAL EXAMINATION: VITAL SIGNS: Blood pressure 95/62, pulse 120, respirations 24, and temp 104. LUNGS: Clear. HEART: Regular. ABDOMEN: Bowel sounds present. She has tenderness to palpation in the right lower quadrant extending up to the right flank with right CVA tenderness. EXTREMITIES: Show no edema. LABORATORY DATA: White count 17,300, hemoglobin 11.3, 86 segs, and 3 bands. Potassium 3.1, BUN 12, and creatinine 1.2. Gentamicin trough 0.8. COVID test negative. ASSESSMENT: 1. Acute pyelonephritis post instrumentation. 2. Asthma, quiescent. 3. Hypertension, stable. PLAN: We will continue to push IV fluids, fever control, IV antibiotics, add Zosyn to her gentamicin and follow up labs. I anticipate another 48-72 hours of acute care hospitalization. /[id number] HAKEEM/ELINA
--- NOTE | 2020-06-05 11:29 | PN ---
DATE SEEN: 06/04/2020 HISTORY: Morgan is a 34-year-old woman who had lithotripsy and stent placement in the right ureter approximately 4 days ago. She developed a fever the next day, came into the emergency room, and was admitted with urinary infection. She has spiked fevers to over 103 and was moderately hypotensive with blood pressures in the 70s systolic. Lactic acid was normal and she was clinically hypovolemic. She was bolused with a liter of fluid and her IV run at the 150 per hour since that. She has been getting Zosyn and gentamicin for infection and her urine culture has come back with enterococcus faecalis. This morning, she feels slightly better. Her pain is improved. She did develop 103 fever overnight and has had 1 loose stool. PHYSICAL EXAMINATION: VITAL SIGNS: This morning, blood pressure 111/71, pulse 86 and regular, temp 98.4, O2 saturation 96% on room air. SKIN: Shows no rash. MOUTH: Dry. LUNGS: Clear. HEART: Regular. ABDOMEN: Normal bowel sounds today. She has tenderness in the right upper quadrant and right lateral abdomen. No lower abdominal tenderness. Urine has been slightly bloody and low volume. ASSESSMENT: 1. Acute pyelonephritis post lithotripsy and stent placement. 2. Anxiety and depression. 3. Chronic allergic rhinitis with asthma. 4. Hypovolemia. PLAN: We will increase her IV fluid 250 an hour again to improve her renal perfusion. Continue the Zosyn. She is on q.24 hour dosing for the gentamicin, and we will discontinue this after today's dose. I anticipate another 24 to 48 hours of acute hospital stay with plans to return home upon discharge. /[id number] HAKEEM/ELINA
[2020-06-05] MEDS: Sodium Chloride 0.9% 1,000 ML IV SCH (11:37)
--- NOTE | 2020-06-05 11:46 | PN ---
DATE SEEN: 06/05/2020 HISTORY: Morgan is a 34-year-old who underwent lithotripsy and stent placement to the right kidney for kidney stones last week. The first postop day she developed a fever and flank pain. She came to the emergency room and was admitted with urinary infection. She has been on IV gentamicin and IV Zosyn. Her fever spikes have been less, but last evening she did still have a temp up to 102.5. She says her pain level is improved, although it is constant right- sided flank area pain. She is able to eat satisfactorily, and she has been up walking in the halls. PHYSICAL EXAMINATION: GENERAL: She is alert and comfortable while lying still. VITAL SIGNS: Blood pressure 112/69, pulse 77, respirations normal, O2 saturation 96% on room air, temp 98.8. SKIN: Shows no rash. LUNGS: Clear. HEART: Regular. ABDOMEN: Normoactive bowel sounds. Soft. She has tenderness along the right upper to the right lower quadrant and slightly towards the suprapubic area. No guarding or rebound tenderness. EXTREMITIES: Show slight puffiness at the ankles. ASSESSMENT: 1. Pyelonephritis with stent in place. 2. Hypertension, controlled. 3. Anxiety and depression. 4. Asthma. PLAN: We will continue her IV Zosyn today. Discontinue the gentamicin. Her urine culture has come back Enterococcus. We will also repeat her CT abdomen and pelvis today to re-evaluate her stone and stent status. I anticipate another 24 hours of acute hospital stay, followed by return to go home when able. /[id number] HAKEEM/ELINA
[2020-06-05] MEDS: Ibuprofen 400 MG Tab PO PRN ×2 (14:41→21:27)
[2020-06-05] MEDS: Montelukast 10 MG Tab PO SCH (21:08)
[2020-06-05] MEDS: ClonazePAM 0.5 MG Tab PO SCH (21:27)
[2020-06-06] MEDS: Sodium Chloride 0.9% 1,000 ML IV SCH (01:14)
[2020-06-06] MEDS: Piperacillin/Tazobactam 3.375 GM in Sodium Chloride 0.9% 50 ML IV SCH (02:21)
[2020-06-06] MEDS ORDERED: Amoxicillin/Clavulanate K 875-125 MG Tab PO SCH (08:45)
[2020-06-06] MEDS: DULoxetine 30 MG Cap PO SCH (09:14)
[2020-06-06] MEDS: Saccharomyces Boulardii (Probiotic) 250 MG Cap PO SCH (09:14)
[2020-06-06] MEDS: Propranolol 80 MG Cap.ER PO SCH (09:15)
[2020-06-06] MEDS: OXcarbazepine 300 MG Tab PO SCH (09:15)
[2020-06-06] MEDS: Potassium Chloride 10 MEQ Tab.ER PO SCH (09:15)
--- NOTE | 2020-06-06 11:48 | DISCH ---
DISCHARGE DATE: 06/06/2020 HISTORY: Morgan is a 34-year-old woman who underwent lithotripsy in [place] by Dr. Jackson on 06/01/2020. The next day she developed a fever and came in through the emergency room. She was found to have urinary infection. She was given IV antibiotics and admitted to the hospital. She continued to be febrile through the next 48 hours after which her fever slowly decreased and her pain improved. This morning she is feeling better. She was hungry for breakfast. She has been without fever overnight and her pain is improved. Urine culture came back positive for Enterococcus faecalis. She is discharged to home in improved condition. She is discharged on medications as follows: 1. Amlodipine 10 mg at bedtime. 2. Hydrocodone/acetaminophen 325/5 one every 4 hours p.r.n. pain. 3. Triamcinolone cream b.i.d. p.r.n. 4. Propranolol LA 80 mg daily. 5. Singulair 10 mg daily. 6. Flonase 1 squirt through each naris b.i.d. 7. Cymbalta 30 mg daily. 8. Clonazepam 0.5 mg at bedtime. 9. Augmentin 875 mg one b.i.d. x10 days. 10.Albuterol nebs p.r.n. 11.Albuterol HFA p.r.n. She is scheduled to have a followup with Dr. Jackson in Urology in approximately 9 days. She is to call should there be questions or problems prior to that time. /[id number] HAKEEM/ELINA
== END 2020-06-06 10:00 | disposition home or self-care (01) | DRG 699 ==
LOC: FB.ED 08:10 → FB.MS 13:09 → OBSVTOIN 14:56
PROVIDERS: ADMIT Family Medicine; ATTEND Family Medicine
DX: T83.593A Infection and inflammatory reaction due to other urinary stents, initial encounter (principal); N10 Acute pyelonephritis; B95.2 Enterococcus as the cause of diseases classified elsewhere; N20.0 Calculus of kidney; F41.0 Panic disorder [episodic paroxysmal anxiety]; F32.9 Major depressive disorder, single episode, unspecified; J45.909 Unspecified asthma, uncomplicated; Z20.828 Contact with and (suspected) exposure to other viral communicable diseases; Z90.49 Acquired absence of other specified parts of digestive tract; Z79.899 Other long term (current) drug therapy; Z88.8 Allergy status to other drugs, medicaments and biological substances
CPT/HCPCS: 36410; 36415; 74178; 80048; 80069; 80170; 81001; 83605; 85025; 86140; 87040; 87086; 87088; 87186; 96361; 96365; 96375; 99284; 99285-25; A9270-GY; J0696; J1580; J1885; J1956; J2270; J2405; J2543; J7030; J7040; J7050; Q9967; U0002

== ENCOUNTER 2020-09-06 23:42 | Emergency (ER) | payer MEDICAID ==
[2020-09-07] MEDS ORDERED: Ketorolac 30 MG/ML SDV IVPUSH ONE (00:20)
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
== END 2020-09-07 01:11 | disposition home or self-care (01) ==
LOC: FB.ED 23:42
DX: R07.89 Other chest pain (principal); I10 Essential (primary) hypertension; J45.909 Unspecified asthma, uncomplicated; F41.9 Anxiety disorder, unspecified; F32.9 Major depressive disorder, single episode, unspecified; E66.9 Obesity, unspecified; Z68.37 Body mass index [BMI] 37.0-37.9, adult; Z88.8 Allergy status to other drugs, medicaments and biological substances; Z79.899 Other long term (current) drug therapy
CPT/HCPCS: 36415; 80053; 84484; 85025; 93005; 96374; 99284; 99285-25; J1885

== ENCOUNTER 2021-01-01 22:07 | Emergency (ER) | payer MEDICAID ==
[2021-01-01] MEDS ORDERED: Acetaminophen 500 MG Tab PO STA (23:02)
[2021-01-01] MEDS ORDERED: Ketorolac 30 MG/ML SDV IM STA (23:02)
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
--- NOTE | 2021-01-02 10:57 | CR ---
INDICATION: Left and right ankle injury, tripped on stairs. LEFT ANKLE: Three views of the left ankle were obtained 01/01/21 - no comparison. No definite soft tissue swelling is noted. The ankle mortise appeared to be intact. The dome of the talus is intact. An acute fracture or dislocation or other significant bone or joint abnormality was not identified. IMPRESSION: Normal left ankle. MTDD
--- NOTE | 2021-01-02 11:02 | CR ---
INDICATION: Left foot and ankle injury, tripped on stairs. LEFT FOOT: Three views of the left foot were obtained 01/01/21 - no comparison. There is some minimal hypertrophic degenerative change at the first metatarsophalangeal joint which could be on the basis of posttraumatic osteoarthritis from previous injury. This is minimal, however. An acute fracture or dislocation or other significant bone or joint abnormality, was not identified. A very tiny posterior calcaneal spur is noted. Soft tissue swelling is noted along the dorsum of the foot at the level of the mid to distal metatarsals - metatarsophalangeal joints. If symptoms persist, if occult fracture site is suspected clinically, reexamination in 10-14 days may be helpful. DODIED
== END 2021-01-01 23:45 | disposition home or self-care (01) ==
LOC: FB.ED 22:07
DX: S93.402A Sprain of unspecified ligament of left ankle, initial encounter (principal); S93.602A Unspecified sprain of left foot, initial encounter; E66.9 Obesity, unspecified; I10 Essential (primary) hypertension; J45.909 Unspecified asthma, uncomplicated; Z68.41 Body mass index [BMI] 40.0-44.9, adult; Z88.8 Allergy status to other drugs, medicaments and biological substances; Z79.899 Other long term (current) drug therapy; X50.1XXA Overexertion from prolonged static or awkward postures, initial encounter
CPT/HCPCS: 73610; 73630; 96372; 99283; A9270; J1885

== ENCOUNTER 2021-01-07 21:37 | Emergency (ER) | payer MEDICAID ==
[2021-01-07] MEDS ORDERED: hydrOXYzine HCl 50 MG/ML SDV IM ONE (21:43)
[2021-01-07] MEDS ORDERED: Diltiazem 25 MG/5 ML SDV IVPUSH ONE (22:38)
[2021-01-07] MEDS ORDERED: Potassium Chloride 20 MEQ Tab.ER PO ONE (22:38)
[2021-01-07] MEDS: Magnesium Sulfate/Water 2 GM/50 ML BAG ONE (23:05)
[2021-01-07] MEDS ORDERED: Magnesium Sulfate/Water 2 GM/50 ML BAG IV ONE (23:07)
[2021-01-08] MEDS: Magnesium Sulfate/Water 2 GM/50 ML BAG ONE (00:04)
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
[2021-01-08] MEDS ORDERED: Diltiazem 120 MG Cap.CD PO ONE (00:23)
== END 2021-01-08 00:51 | disposition home or self-care (01) ==
LOC: FB.ED 21:37
DX: E87.6 Hypokalemia (principal); R94.31 Abnormal electrocardiogram [ECG] [EKG]; I51.7 Cardiomegaly; D72.829 Elevated white blood cell count, unspecified; R74.8 Abnormal levels of other serum enzymes; I10 Essential (primary) hypertension; J45.909 Unspecified asthma, uncomplicated; Z88.8 Allergy status to other drugs, medicaments and biological substances; Z79.899 Other long term (current) drug therapy
CPT/HCPCS: 36415; 80053; 83735; 84443; 84484; 85025; 86140; 93005; 96365; 96366; 96372; 96375; 99285; A9270; J3410; J3475; J3490

== ENCOUNTER 2021-01-09 01:22 | Emergency (ER) | payer MEDICAID ==
[2021-01-09] MEDS ORDERED: Metoprolol Tartrate 50 MG Tab PO STA (01:56)
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
== END 2021-01-09 02:50 | disposition home or self-care (01) ==
LOC: FB.ED 01:22
DX: R00.2 Palpitations (principal); I10 Essential (primary) hypertension; J45.909 Unspecified asthma, uncomplicated; E66.9 Obesity, unspecified; Z68.41 Body mass index [BMI] 40.0-44.9, adult; Z88.8 Allergy status to other drugs, medicaments and biological substances; Z79.899 Other long term (current) drug therapy
CPT/HCPCS: 99285; A9270

== ENCOUNTER 2021-03-03 04:35 | Emergency (ER) | payer MEDICAID ==
[2021-03-03] MEDS: traMADol 50 MG Tab PO ONE (05:08)
[2021-03-03] MEDS: Ketorolac 30 MG/ML SDV IM ONE (05:08)
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
[2021-03-03] MEDS: hydrALAZINE 20 MG/ML SDV IM ONE (06:34)
[2021-03-03] MEDS: Metoprolol Tartrate 50 MG Tab PO ONE (06:39)
[2021-03-03] MEDS: cloNIDine 0.1 MG Tab PO ONE (06:39)
== END 2021-03-03 06:55 | disposition home or self-care (01) ==
LOC: FB.ED 04:35
DX: M79.605 Pain in left leg (principal); I10 Essential (primary) hypertension; E66.9 Obesity, unspecified; Z68.39 Body mass index [BMI] 39.0-39.9, adult; Z88.8 Allergy status to other drugs, medicaments and biological substances
CPT/HCPCS: 36415; 85379; 96372; 99283; A9270; J0360; J1885

== ENCOUNTER 2021-03-05 06:10 | Emergency (ER) | payer MEDICAID ==
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
--- NOTE | 2021-03-05 09:02 | ER ---
DATE SEEN: 03/05/2021 CHIEF COMPLAINT: Palpitations. HISTORY OF PRESENT ILLNESS: This is a 35-year-old who was seen by Dr. Gr. She presented from the custodial complaining of dizziness, palpitations, chest tightness, and feeling poorly. These symptoms are longstanding. She does have a history of sinus tachycardia and has not been taking her prescription of verapamil. REVIEW OF SYSTEMS: She denies any shortness of breath or chest pain. PAST MEDICAL HISTORY: Has an extensive mental health history that includes, but is not limited to, depression, suicidal behavior, and various pain syndromes. PHYSICAL EXAMINATION: GENERAL: She is sleeping comfortably. VITAL SIGNS: Her blood pressure and temperature are normal. Her pulse was 110 initially. ENT: Normal. CHEST: Clear. CARDIOVASCULAR: Normal. LABORATORY DATA: Labs including CBC and troponin showed a white cell count of 12.0, but normal electrolytes. EKG reviewed by myself was normal. IMPRESSION: 1. Sinus tachycardia. 2. Feeling poorly. PLAN: The patient was reassured. She had received 1 dose of verapamil orally, and she will be discharged home to continue her previous prescription and to see tomorrow. /[id number] MINNIE/ELINA
== END 2021-03-05 08:58 | disposition home or self-care (01) ==
LOC: FB.ED 06:10
DX: R00.0 Tachycardia, unspecified (principal)
CPT/HCPCS: 36415; 80048; 84484; 85025; 93005; 99285-25; A9270-GY

== ENCOUNTER 2021-04-05 14:06 | Emergency (ER) | payer MEDICAID ==
[2021-04-05] MEDS ORDERED: Sodium Chloride 0.9% 1,000 ML IV ONE (14:49)
[2021-04-05] MEDS ORDERED: Ketorolac 30 MG/ML SDV IVPUSH ONE (14:49)
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
--- NOTE | 2021-04-05 16:16 | CT ---
INDICATION: Left flank pain intermittently x24 hours. Complains of renal colic, question obstructive uropathy. CT ABDOMEN AND PELVIS WITHOUT CONTRAST: Spiral 2.5 mm axial sections were obtained through the abdomen and pelvis with sagittal and coronal reconstructions without IV contrast or oral contrast, 04/05/21 and compared with 06/05/20. Total exam DLP was 1344.09 milligray-cm. The lower lung neal and pleural spaces visualized showed clearing of previous pleuroparenchymal changes with no active infiltrate or effusion currently. The heart is normal in size. No pericardial effusion was seen. The kidneys showed no evidence of obstructive uropathy or renal calcinosis. There is question of a low-density abnormality at the lower pole of the left kidney which could have been present previously, etiology is indeterminate, especially without IV contrast. Contrast-enhanced CT or ultrasound may be helpful in that regard. There is no calculi in the right kidney that were present previously. However, on the left in the lower pole, there is now a very tiny calcification most likely in a calyx which is nonobstructive. The adrenal glands, spleen, liver, common bile duct, and pancreas appear normal. No retroperitoneal lymphadenopathy is noted of any significance - minimal - nonspecific. No retroperitoneal mass was identified. The gallbladder is absent compatible with history of its removal. The appendix appeared normal visualized on axial images 104-112. An anastomosis is noted at the sigmoid colon and it appears to be functioning normally. No evidence of bowel obstruction or free air was identified. No inguinal or ventral hernia was identified. There is again noted some increased density in the intraperitoneal fat which appears unchanged from the previous study and may be on the basis of previous inflammatory process in that area in the left mid abdomen anterior to the mid to lower pole of the left kidney. No additional mass lesions, organomegaly or free fluid collections were identified in the abdomen or pelvis. IMPRESSION: 1. Low-density abnormality lower pole of the left kidney, etiology indeterminate. Ultrasound of the left kidney or possibly repeat CT scan with IV contrast, may be helpful for further evaluation. 2. Resolution of pleuroparenchymal changes at the lung bases seen previously. 3. Post cholecystectomy. 4. Normal appendix. 5. Renal calculi and stent present on the previous examination at the right kidney and ureter no longer visualized. 6. Lumbar fusion. 7. Colon resection with anastomosis at the sigmoid colon. 8. Somewhat oval area of increased intraperitoneal fat density present previously and of indeterminate etiology - could be on the basis of previous inflammatory disease. The possibility of recurrent active disease would be a consideration with this appearance. 9. Stable fusion L5-S1 with rods and pedicle screws and disc spacer. Progressive degenerative disc disease with vacuum disc phenomenon is noted at L3-L4 with probable minimal disc disease at L4-L5. Report was called to Dr. Shane at 1539 hours. [facility]
== END 2021-04-05 16:05 | disposition home or self-care (01) ==
LOC: FB.ED 14:06
DX: E87.6 Hypokalemia (principal); R10.32 Left lower quadrant pain; I10 Essential (primary) hypertension; E66.9 Obesity, unspecified; Z90.49 Acquired absence of other specified parts of digestive tract; Z88.8 Allergy status to other drugs, medicaments and biological substances; Z79.899 Other long term (current) drug therapy; Z68.41 Body mass index [BMI] 40.0-44.9, adult
CPT/HCPCS: 36415; 74176; 80053; 81001; 83690; 85025; 86140; 96374; 99284; J1885; J7030

== ENCOUNTER 2021-04-22 21:36 | Emergency (ER) | payer MEDICAID ==
[2021-04-22] MEDS ORDERED: Lidocaine 2% Viscous Solution 15 ML Cup ONE (22:22)
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
[2021-04-22] MEDS ORDERED: Lidocaine 2% Viscous Solution 15 ML Cup PO STA (22:40)
== END 2021-04-22 22:46 | disposition home or self-care (01) ==
LOC: FB.ED 21:36
DX: K04.7 Periapical abscess without sinus (principal); K02.9 Dental caries, unspecified; E66.9 Obesity, unspecified; I10 Essential (primary) hypertension; Z79.899 Other long term (current) drug therapy; Z88.8 Allergy status to other drugs, medicaments and biological substances
CPT/HCPCS: 99282; A9270

== ENCOUNTER 2021-06-06 17:58 | Emergency (ER) | payer MEDICAID ==
[2021-06-06] MEDS ORDERED: LORazepam 1 MG Tab PO ONE (18:29)
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
== END 2021-06-06 20:35 | disposition home or self-care (01) ==
LOC: FB.ED 17:58
DX: F41.9 Anxiety disorder, unspecified (principal); T42.6X5A Adverse effect of other antiepileptic and sedative-hypnotic drugs, initial encounter; I10 Essential (primary) hypertension; J45.909 Unspecified asthma, uncomplicated; E66.9 Obesity, unspecified; Z88.8 Allergy status to other drugs, medicaments and biological substances; Z91.09 Other allergy status, other than to drugs and biological substances; Z68.41 Body mass index [BMI] 40.0-44.9, adult
CPT/HCPCS: 99285; A9270